=== PATIENT | male | born 1950 | race Caucasian/White ===

== ENCOUNTER 2019-02-15 10:56 | Inpatient (IN) | payer OTHER ==
[~2019-02-15] VITALS: Ht 177.8 cm; Wt 133.5 kg
--- NOTE | 2019-02-15 14:35 | NUR ---
PT ORIENTED TO ROOM AND UNIT. BED LOW AND LOCKED, SIDE RAILS UPX3 CALL LIGHT IN REACH. TELE HAS BEEN APPLIED. WILL CONTINUE TO ASSESS.
[2019-02-15 16:04] LABS: HEMATOCRIT 44.6 % (42.0-52.0); HEMOGLOBIN 13.9 gm/dL (14.0-18.0); MCH 29.3 pg (26.0-34.0); MCHC 31.2 g/dL (28.0-37.0); MCV 93.8 fL (80.0-100.0); RBC 4.76 mil/uL (4.50-6.00); RDW 16.1 % (10.5-14.5)
[2019-02-15] MEDS ORDERED: DILTIAZEM ER180 M2 PO ×2 (16:14)
[2019-02-15] MEDS ORDERED: PROAIR HFA8.5 GM INH ×2 (16:15)
[2019-02-15] MEDS ORDERED: LIPITOR40 MG PO ×2 (16:15)
[2019-02-15 16:17] LABS: INR 1.1; PROTIME 11.4 Seconds (9.3-11.4)
[2019-02-15 20:17] VITALS: BP 148/53
[2019-02-16] VITALS (38 sets, daily range): BP systolic 95–158; BP diastolic 44–83
--- NOTE | 2019-02-16 06:10 | NUR ---
REPORT RECEIVED FROM GREGDAY SHIFT RN.PATIENT A/O X 4.DENIES PAIN AND SOB.ON ROOM AIR. UP WITH STANDBY ASSIST.NPO SINCE MIDNIGHT.CHLORHEXIDINE BATH GIVEN TWICE THIS SHIFT.HEPARIN GTT STOPPED AFTER REPORT GIVEN TO CARLOS ENRIQUE AT 0600 AM.SON IS HERE WITH PATIENT.PREOP RN IS HERE AT 0615 TO ENTRY LEVEL PATIENT.POC CONTINUED.
--- NOTE | 2019-02-16 09:13 | NUR ---
RD consult received. Pt NPO for CABG 02/16. Hx HTN, CHF. Extreme obesity with BMI of 41.2. Will address any nutrition education needs after pt transfers out of ICU setting and at more appropriate time.
[2019-02-16 13:51] LABS: HEMATOCRIT 27.7 % (42.0-52.0); MCH 29.3 pg (26.0-34.0); MCHC 31.4 g/dL (28.0-37.0); MCV 93.2 fL (80.0-100.0); RBC 2.98 mil/uL (4.50-6.00); WBC 22.8 thou/uL (4.0-11.0)
[2019-02-16 13:53] LABS: HEMOGLOBIN 8.7 gm/dL (14.0-18.0)
[2019-02-16 14:07] LABS: PROTIME 17.4 Seconds (9.3-11.4)
[2019-02-16 14:12] LABS: INR 1.7
[2019-02-16 14:13] LABS: APTT 27.9 Seconds (24.5-32.8); FIBRINOGEN 113.5 mg/dL (210-360)
[2019-02-16 14:53] LABS: POC BE 6 mmol/L (-2.0 to +3.0); POC CA IONIZED 4.6 mg/dL (4.5-5.3); POC GLUCOSE 144 mg/dL (70-99); POC HEMOGLOBIN 13.3 g/dL (14.0-18.0); POC SODIUM 139 mmol/L (136-145); POC pCO2 49.5 mmHg (35.0-45.0); POC pH 7.406 (7.360-7.450)
[2019-02-16 14:53] LABS: POC BE 5 mmol/L (-2.0 to +3.0); POC CA IONIZED 4.2 mg/dL (4.5-5.3); POC GLUCOSE 161 mg/dL (70-99); POC HCO3 29.6 mmol/L (22.0-26.0); POC HEMOGLOBIN 8.5 g/dL (14.0-18.0); POC POTASSIUM 5.2 mmol/L (3.5-5.1); POC SODIUM 139 mmol/L (136-145); POC pCO2 46.7 mmHg (35.0-45.0)
[2019-02-16 14:53] LABS: POC BE 3 mmol/L (-2.0 to +3.0); POC CA IONIZED 4.9 mg/dL (4.5-5.3); POC GLUCOSE 153 mg/dL (70-99); POC HCO3 28.3 mmol/L (22.0-26.0); POC HEMOGLOBIN 9.5 g/dL (14.0-18.0); POC POTASSIUM 4.8 mmol/L (3.5-5.1); POC SODIUM 141 mmol/L (136-145); POC pCO2 48.7 mmHg (35.0-45.0); POC pH 7.372 (7.360-7.450)
[2019-02-16 14:53] LABS: POC BE 4 mmol/L (-2.0 to +3.0); POC CA IONIZED 4.7 mg/dL (4.5-5.3); POC GLUCOSE 132 mg/dL (70-99); POC HCO3 28.1 mmol/L (22.0-26.0); POC HEMOGLOBIN 11.6 g/dL (14.0-18.0); POC POTASSIUM 4.7 mmol/L (3.5-5.1); POC SODIUM 141 mmol/L (136-145); POC pH 7.413 (7.360-7.450)
[2019-02-16 14:53] LABS: POC BE 7 mmol/L (-2.0 to +3.0); POC CA IONIZED 4.6 mg/dL (4.5-5.3); POC GLUCOSE 151 mg/dL (70-99); POC HEMOGLOBIN 13.9 g/dL (14.0-18.0); POC POTASSIUM 5.4 mmol/L (3.5-5.1); POC SODIUM 138 mmol/L (136-145); POC pCO2 53.4 mmHg (35.0-45.0); POC pH 7.387 (7.360-7.450)
[2019-02-16 14:53] LABS: POC BE 6 mmol/L (-2.0 to +3.0); POC CA IONIZED 4.1 mg/dL (4.5-5.3); POC GLUCOSE 157 mg/dL (70-99); POC HCO3 29.7 mmol/L (22.0-26.0); POC HEMOGLOBIN 9.5 g/dL (14.0-18.0); POC POTASSIUM 5.1 mmol/L (3.5-5.1); POC SODIUM 141 mmol/L (136-145); POC pCO2 42.5 mmHg (35.0-45.0); POC pH 7.452 (7.360-7.450)
[2019-02-16 14:53] LABS: POC BE 6 mmol/L (-2.0 to +3.0); POC CA IONIZED 4.5 mg/dL (4.5-5.3); POC GLUCOSE 146 mg/dL (70-99); POC HCO3 30.3 mmol/L (22.0-26.0); POC HEMOGLOBIN 13.3 g/dL (14.0-18.0); POC POTASSIUM 4.9 mmol/L (3.5-5.1); POC SODIUM 139 mmol/L (136-145); POC pCO2 47.7 mmHg (35.0-45.0); POC pH 7.411 (7.360-7.450)
[2019-02-16 14:53] LABS: POC BE 5 mmol/L (-2.0 to +3.0); POC CA IONIZED 4.4 mg/dL (4.5-5.3); POC GLUCOSE 135 mg/dL (70-99); POC HEMOGLOBIN 11.2 g/dL (14.0-18.0); POC POTASSIUM 5.4 mmol/L (3.5-5.1); POC SODIUM 140 mmol/L (136-145); POC pCO2 48.8 mmHg (35.0-45.0); POC pH 7.396 (7.360-7.450)
--- NOTE | 2019-02-16 15:38 | NUR ---
INITIAL ASSESSMENT: Received consult for discharge planning. SW reviewed chart and spoke with nursing and attending physician. Pt was transferred to [facility] from [facility] yesterday due to CAD. Pt had CABG x 4 earlier today. Pt currently in ICU. Pt was just brought up from OR and getting settled into room. No contact info listed for pt. Per chart, pt lives at home in [facility]. Pt with hx of HTN/CHF/PAD/Obesity/A-fib. Therapy ordered to evaluate pt when able to participate. FELIPA is following to assist as needed with discharge planning.
[2019-02-16 15:44] LABS: HEMATOCRIT 39.3 % (42.0-52.0); MCH 29.3 pg (26.0-34.0); MCHC 31.5 g/dL (28.0-37.0); MCV 93.1 fL (80.0-100.0); RBC 4.22 mil/uL (4.50-6.00); RDW 15.6 % (10.5-14.5); WBC 37.7 thou/uL (4.0-11.0)
[2019-02-16 15:46] LABS: BE(vivo) 0.3 mmol/L (-2 to +3); PCO2 52.6 mmHg (35.0-45.0); PO2 192.4 mmHg (80.0-100.0); sO2 99.2 % (92.0-98.0)
[2019-02-16 15:47] LABS: pH 7.329 (7.360-7.450)
[2019-02-16 15:51] LABS: HEMOGLOBIN 12.4 gm/dL (14.0-18.0)
[2019-02-16 15:58] LABS: APTT 28.5 Seconds (24.5-32.8); INR 1.3; PROTIME 12.9 Seconds (9.3-11.4)
[2019-02-16 16:00] LABS: CALCIUM 8.5 mg/dL (8.5-10.1); CREATININE 1.5 mg/dL (0.7-1.3); MAGNESIUM 2.6 mg/dL (1.8-2.4)
[2019-02-16 17:45] LABS: BE(vivo) -1.4 mmol/L (-2 to +3); HCO3 24.3 mmol/L (22.0-26.0); PCO2 44.9 mmHg (35.0-45.0); PO2 113.9 mmHg (80.0-100.0); pH 7.352 (7.360-7.450)
[2019-02-16 18:30] LABS: BE(vivo) -1.5 mmol/L (-2 to +3); PCO2 49.3 mmHg (35.0-45.0); PO2 127.8 mmHg (80.0-100.0); sO2 98.3 % (92.0-98.0)
[2019-02-16 18:32] LABS: pH 7.323 (7.360-7.450)
--- NOTE | 2019-02-16 19:56 | NUR ---
PT ARRIVED TO UNIT POST CABGX4 AT 1530. DR. CALDERÓN (ANESTHISA) IN ROOM WITH CROP ADJUSTER. KAITLYNN WEBER AT BEDSIDE. PATIENT PLACED ON MONITOR. RESPIRATORY PRESENT TO PLACE ON VENT. FREDI HUGGER APPLIED. PATIENT ARRIVED ON PROPOFOL AT 10 - NO OTHER DRIPS INFUSING. VENT CHANGES MADE BY RT AT 1600. COMMUNICATED CHANGES AND ABG RESULTS TO ZECHARIAH WEBER. 2 MEDS / 1 PLUERAL CHEST TUBE. SEE I/O FOR OUTPUTS. IGLESIAS PATENT, ADEQUATE URINE OUTPUT. HR IN THE 120'S. PROVIDER AWARE. STARTED ON AMIO GTT. ORDERS TO START A SHANON GTT. PROPOFOL TIRATED OFF. PATIENT AWAKE AND FOLLOWING COMMANDS. RT AT BEDSIDE TO START CPAP TRAIL. POST TRIAL ABG RESULTS SHOWN TO DR. SPIVEY AT BEDSIDE. OKAY FOR RT TO EXTUBATE. EXTUBATED AT 1840. PATIENT TOLERATED WELL. MIDSTERNAL INCISION VAC IN PLACE. LEFT LEG GRAFT SITES, SHER DRAIN WITH 40 CC OUT. REPORT GIVEN TO DANY.
[2019-02-17] VITALS (51 sets, daily range): BP systolic 84–165; BP diastolic 38–71
[2019-02-17 05:35] LABS: HEMATOCRIT 31.2 % (42.0-52.0); MCH 29.6 pg (26.0-34.0); MCHC 31.4 g/dL (28.0-37.0); RBC 3.32 mil/uL (4.50-6.00); RDW 16.1 % (10.5-14.5)
[2019-02-17 05:47] LABS: HEMOGLOBIN 9.8 gm/dL (14.0-18.0)
[2019-02-17 05:48] LABS: WBC 22.5 thou/uL (4.0-11.0)
[2019-02-17 05:55] LABS: CALCIUM 7.7 mg/dL (8.5-10.1); CREATININE 2.1 mg/dL (0.7-1.3); MAGNESIUM 2.7 mg/dL (1.8-2.4); POTASSIUM 5.6 mmol/L (3.5-5.1)
--- NOTE | 2019-02-17 07:48 | NUR ---
ASSUMED CARE OF PT AT 1900. PT PREVIOUSLY EXTUBATED AT 1840. DR SPIVEY CALLED AT 2123 AND NOTIFIED OF ELEVATED K OF 5.5. ALSO NOTIFIED OF BP 100-90 SYSTOLIC AND UNABLE TO START CARDIZEM FOR ELEVATED HR. DR SPIVEY OK WITH ELEVATED HR, BUT ENCOURAGED TO TRY AND START CARDIZEM WHEN ABLE. CARDIZEM STATED BRIEFLY AT 2129 AND STOPPED SHORTLY AFTER DUE TO HYPOTENSION SYSTOLIC BP 80s. THIS AM PT WAS TRANSFERED TO CHAIR BY ICU STAFF. PT VERBALIZED SOME SOA BUT STATED HE FELT OK TO TRANSFER. AFTER PT TRANSFERED BP NOTED TO BE IN THE 80s SYSTOLIC AND CI 1.6. ALBUMIN GIVEN X2. REPORT GIVEN TO ONCOMING RN. PT MAKING PROGRESS TOWARDS GOALS.
--- NOTE | 2019-02-17 10:55 | EKG ---
[place] [address] [facility] [place] [address] ELECTROCARDIOGRAM REPORT Name: ANDRECLARENCE Tabby Room #: 247-P ADM IN M.R.#: [id number] Admission: 02/15/19 Attend Phys: Jatin Hodge MD Discharge: Date of : 48 Report #: [id number] THIS REPORT FOR: //name// [facility] Test Date: 2019-02-16 Test Time: 16:39:21 Pat Name: CLARENCE POWELL Department: Room: 247 P Gender: M Wedding Decorator: Tenisha ESPINAL : 1950 Requested By: Warner Mack Order Number: [id number] MD: Mick Mcintyre Measurements Intervals [place] Rate: 121 P: 109 IL: 98 QRS: -120 QRSD: 157 T: 52 QT: 361 QTc: 513 Interpretive Statements Possible atrial flutter Frequent PVCs Right bundle branch block Baseline wander in lead(s) V4 No previous ECG available for comparison Electronically Signed On 02-17-2019 10:54:30 IMAGING TECH by Mick Mcintyre [email or web address] <ELECTRONICALLY SIGNED> By: Mick Mcintyre MD 02/17/19 1054 [id number] Mick Mcintyre MD /MEGA
--- NOTE | 2019-02-17 19:09 | NUR ---
0700 ASSUMED CARE UP TO CHAIR 8 HOURS TOLERATED WELL. SG DC'D, ENCOURAGED I.S, ROM, BP LABIILE DISCUSSED WITH PA. STARTED CARDENE SEE CHARTING. TOLERATING PO DIET. PROGRESSING TOWARDS GOALS PER POC. REPORTED TO PM RN 1900.
[2019-02-18] VITALS (29 sets, daily range): BP systolic 89–157; BP diastolic 33–64
[2019-02-18 05:22] LABS: HEMATOCRIT 25.5 % (42.0-52.0); HEMOGLOBIN 8.2 gm/dL (14.0-18.0); MCH 30.1 pg (26.0-34.0); MCHC 32.2 g/dL (28.0-37.0); MCV 93.7 fL (80.0-100.0); RBC 2.73 mil/uL (4.50-6.00); RDW 15.7 % (10.5-14.5); WBC 21.6 thou/uL (4.0-11.0)
[2019-02-18 05:31] LABS: CALCIUM 7.7 mg/dL (8.5-10.1); CREATININE 1.5 mg/dL (0.7-1.3); POTASSIUM 4.7 mmol/L (3.5-5.1)
--- NOTE | 2019-02-18 15:30 | NUR ---
Assumed care at 0700. PT is sitting upright in the recliner with his eyes closed. PT appears drowsy. R. radial arterial line was dc'd per provider's orders. PT tolerated procedure well. Pressure was held for 5 minutes and hemostasis was obtained. Rojo catheter was dc'd. PT tolerated procedure well. PT is due to void. PT is currently sitting in the recliner. He refused to go back to bed. PT appears to be resting. Call light is within reach. Fall precautions in place. Nurse will continue to monitor.
[2019-02-19] VITALS (25 sets, daily range): BP systolic 107–140; BP diastolic 34–98
[2019-02-19 08:09] LABS: CALCIUM 8.5 mg/dL (8.5-10.1); CREATININE 1.2 mg/dL (0.7-1.3); POTASSIUM 5.1 mmol/L (3.5-5.1)
[2019-02-19 09:44] LABS: HEMOGLOBIN 8.3 gm/dL (14.0-18.0); MCH 29.9 pg (26.0-34.0); MCV 93.5 fL (80.0-100.0); RBC 2.78 mil/uL (4.50-6.00); RDW 15.8 % (10.5-14.5); WBC 27.1 thou/uL (4.0-11.0)
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
--- NOTE | 2019-02-19 16:51 | NUR ---
Assumed care at 0700. PT was sitting up in the recliner, drowsy, A&Ox4. PT has ambulated twice today with nurse and PT. PT declines to ambulate more often and refuses to get out of the recliner into the bed. Nurse has stood PT up multiple times to help adjust his position. PT frequently tells nurse that he "just needs to rest." Nurse encouraged activity and discussed the importance of ambulation and breathing exercises. PT verbalized understanding. At 1600 PT told nursing staff that he does not want any visitors today including his son, Pedro Guy. Nurse verbalized understanding and placed a sign on the PT's room that says "See nurse before entering." PT is currently in the recliner with his eyes closed. Call light is within reach. Fall precautions in place. Nurse will continue to monitor.
[2019-02-20] VITALS (21 sets, daily range): BP systolic 85–129; BP diastolic 39–66
[2019-02-20 04:08] LABS: HEMATOCRIT 28.3 % (42.0-52.0); HEMOGLOBIN 8.6 gm/dL (14.0-18.0); MCH 28.9 pg (26.0-34.0); MCHC 30.5 g/dL (28.0-37.0); MCV 94.8 fL (80.0-100.0); RBC 2.98 mil/uL (4.50-6.00); RDW 16.4 % (10.5-14.5); WBC 34.1 thou/uL (4.0-11.0)
[2019-02-20 04:09] LABS: CALCIUM 8.6 mg/dL (8.5-10.1); CREATININE 1.3 mg/dL (0.7-1.3); POTASSIUM 5.8 mmol/L (3.5-5.1)
--- NOTE | 2019-02-20 12:03 | EKG ---
[place] [address] [facility] [place] [address] ELECTROCARDIOGRAM REPORT Name: CLARENCE POWELL Tabby Room #: 247-P ADM IN M.R.#: [id number] Admission: 02/15/19 Attend Phys: Jatin Hodge MD Discharge: Date of : 48 Report #: [id number] THIS REPORT FOR: //name// [facility] Test Date: 2019-02-20 Test Time: 08:05:37 Pat Name: CLARENCE POWELL Department: Room: 247 P Gender: M Vehicle Cost Engineer: Raquel GREGORY : 1950 Requested By: Warner Mack Order Number: [id number] MD: Robert Francisco Measurements Intervals [place] Rate: 93 P: TN: QRS: -65 QRSD: 149 T: 38 QT: 406 QTc: 506 Interpretive Statements Atrial fibrillation Right bundle branch block Compared to ECG 02/16/2019 16:39:21 Ventricular premature complex(es) no longer present Electronically Signed On 02-20-2019 12:02:59 ONLINE EDITOR by Robert Francisco [email or web address] <ELECTRONICALLY SIGNED> By: Robert Francisco MD, [facility] 02/20/19 1202 4 4 Robert Francisco MD, [facility] /EPI
--- NOTE | 2019-02-20 18:32 | NUR ---
ASSUMED CARE OF PT AT APPROX 0700. PT IS ALERT AND ORIENTED X4. PT IS MAINTAINING 02 SAT >90 WHILE TITRATING 02 DOWN BY RT. BREATHING REMAINS EVEN AND NON LABORED AT REST. PT DOES BECOME SOA WITH ACTIVITY BUT 02 SAT REMAINS STABLE. PT TRY TO REFUSE THERAPY AND WALKING IN AFTERNOON BUT PT EDUCATED ON IMPORTANCE AND STRESSED THAT THIS THERAPY AND ACTIVITY IS VERY IMPORTANT IN HIS RECOVERY AND THEN PT AGREED TO PARTICIPATE. DRFAINS IN PLACE. PACER WIRES IN PLACE. DRESSINGS INTACT. SHER DRAIN DRESSING CHANGED TODAY. VSS. ASSESSMENT CHARTED. POSSIBLE TRANSFER OFF UNIT IN 1-2 DAYS. STILL CLOSELY MONITORING DRAINAGE OUTPUT. PATIENT UPDATED ON POC. WILL CONTINUE TO MONITOR.
[2019-02-21] VITALS (15 sets, daily range): BP systolic 98–166; BP diastolic 48–70
--- NOTE | 2019-02-21 06:00 | NUR ---
PT AWAKE AND ALERT HAS REMAINED UP IN CHAIR ALL NIGHT. SINGING TO HARD ROCK MUSIC AND DOING PUZZLES., WOUND VAC TO CHEST 0 OUTPUT ALL DRESSINGS DRY AND INTACT VOIDED 900 CC THIS SHIFT. TOTAL OF 400 CC FROM MEDS AND PLEURAL TUBE AND 370 CC FROM LEFT LEG SHER DRAIN. REMAINS IN AFIB RATE 92. CONT TO DOPPLE PEDAL PULSES. IN GOOD SPIRITS. WILL CONT TO MONITOR.
--- NOTE | 2019-02-21 15:00 | NUR ---
MS chest tubes pulled and dressed. pt tolorated well.
--- NOTE | 2019-02-21 19:37 | NUR ---
MS TUBES OUT TODAY. MEDICATED X 1 FOR PAIN WITH GOOD RESULTS. PT SITTING UP IN CHAIR AFTER AMBULATION. PT CCU OVERFLOW AND PROGRESSING TOWARDS GOALS.
[2019-02-22] VITALS (19 sets, daily range): BP systolic 100–141; BP diastolic 39–120
--- NOTE | 2019-02-22 06:00 | NUR ---
PT REMAINS AWAKE AND ALERT. WOUND VAC TO CHEST WOUND 0 DRAINAGE 600 CC FROM LEFT LEG SHER DRAIN AND 150 CC FROM PLEURAL TUBE. REMAINS IN AFIB. LUNGS COARSE IN UPPER LOBES. PT IS IN GOOD SPIRITS LISTENING TO ROCK MUSIC AND PLAYING THE AIR GUITAR. REMAINS A CCU OVERFLOW. WILKL CONT TO MONITOR.
[2019-02-22 08:34] LABS: HEMATOCRIT 26.6 % (42.0-52.0); HEMOGLOBIN 8.4 gm/dL (14.0-18.0); MCH 29.9 pg (26.0-34.0); MCHC 31.5 g/dL (28.0-37.0); MCV 94.9 fL (80.0-100.0); RBC 2.8 mil/uL (4.50-6.00); RDW 17.1 % (10.5-14.5); WBC 24.6 thou/uL (4.0-11.0)
[2019-02-22 08:50] LABS: CALCIUM 9.3 mg/dL (8.5-10.1); CREATININE 1.2 mg/dL (0.7-1.3); POTASSIUM 5.1 mmol/L (3.5-5.1)
--- NOTE | 2019-02-22 19:59 | NUR ---
PT AMBULATING IN HALLWAY X2. ORDER TO TRANSFER TO CCU. AWAITING AVAILABLE ROOM. GIVEN HYDROCODONE FOR PAIN X1. UP TO CHAIR ALL DAY TODAY. PACER WIRES DISCONTINUE BY GUS BETANCOURT THIS AM. CHEST XRAY DONE FOLLOWING. REPORT GIVEN TO URGENT CARE TECHNICIAN RN.
[2019-02-23] VITALS (8 sets, daily range): BP systolic 118–173; BP diastolic 30–60
--- NOTE | 2019-02-23 06:00 | NUR ---
PT UP IN CHAIR AWAKE MOST OF NOCT. DRESSING INTACT. HAD 650 CC DRAINAGE FROM LEFT LEG SHER DRAIN. PLEURAL CHEST TUBE WITH 100 CC DRAINAGE THIS SHIFT. ONE LARGE LIQ STOOL VOIDED 1500 CC. PAIM MED X 1 IN GOOD SPIRITS. REMAINS A CCU OVERFLOW.
--- NOTE | 2019-02-23 10:10 | NUR ---
Followup: S/P CABG and is CCU overflow in ICU. Appetite initially decreased but now eating 100% of meals. Pt with extreme class obesity, BMi 43. Was started on Ensure Enlive with every meal while appetite decreased. Will discontinue this now as it provides 350 kem per serving and pt is drinking 3 of these plus eating 100%. RD education provided-see RD education documentation. Low nutrition risk
--- NOTE | 2019-02-23 12:00 | NUR ---
PT TRANSFERED TO CCU VIA CHAIR ON MONITOR. ALL BELONGINGS WITH PT.
--- NOTE | 2019-02-23 12:31 | NUR ---
TO UNIT BY CHAIR FROM ICU, REPORT FROM ADRIAN MENDENHALL. AFIB PER TELE. IN BEDSIDE CHAIR WITH LEGS ELEVATED. WILL MONITOR CLOSELY.
[2019-02-24 00:30] VITALS: BP 104/46
[2019-02-24 04:45] VITALS: BP 118/78
--- NOTE | 2019-02-24 04:49 | NUR ---
PT S/P CARDIAC CATH. ALERT AND ORIENTED. VSS. R GROIN SITE INTACT WITH DRY BLOOD ON THE DRESSING. PT DENIES PAIN, N/V/. NO CHEST PAIN OVERNIGHT. PERIODIC PVCs. ASYMPTOMATIC. WILL CONTINUE WITH PLAN OF CARE.
--- NOTE | 2019-02-24 08:28 | NUR ---
PT ALERT AND ORIENTED S/P CABG. POD 8. STERNAL DRESSING C/D/I. SHER DRAIN 320 CC OUT PUT. VSS. NO CHEST PAIN. WILL CONTINUE TO MONITOR.
[2019-02-24 08:30] VITALS: BP 100/50
--- NOTE | 2019-02-24 10:43 | O ---
[facility] [place] [address] OPERATIVE REPORT Name: ANDRECLARENCE Tabby Room #: 206-P ADM IN M.R.#: [id number] Admission: 02/15/19 Attend Phys: Jatin Hodge MD Discharge: Date of : 48 Report #: [id number] THIS REPORT FOR: //name// CC: FAM unknown Jatin Hodge DATE OF SERVICE: 02/16/2019 PREOPERATIVE DIAGNOSIS: Coronary artery disease. POSTOPERATIVE DIAGNOSIS: Coronary artery disease. OPERATION: Coronary artery bypass x 4 including left internal mammary artery to left anterior descending artery, saphenous vein to diagonal and marginal arteries and saphenous vein to posterior descending artery in a Y-type fashion. Endoscopic harvest, left greater saphenous vein. SURGEON: Jatin Hodge MD ENVIRONMENTAL SAMPLER: GUS Leger. ANESTHESIA: General. INDICATIONS: The patient is a 68-year-old transferred from [place] for coronary artery bypass. The patient has a 70-80% left main coronary stenosis and had non-STEMI infarct in association with supraventricular tachycardia. FINDINGS AND TECHNIQUE: After general anesthesia was established, saphenous vein was harvested using an endoscopic approach. In any event, after general anesthesia was established, saphenous vein was harvested using an endoscopic approach. Exposure was obtained through median sternotomy. Left internal mammary artery was harvested from chest wall. Pericardial well was made. Cannulation sutures were placed. Heparin was given. Aorta was cannulated. Right atrium was cannulated. Cardioplegia needle was positioned in the aortic root. Retrograde cardioplegic catheter was placed in coronary sinus. Cardiopulmonary bypass was established. Aorta was crossclamped. Antegrade and retrograde cardioplegia were given. Ice was poured in the pericardial well. The heart was stopped. During electromechanical arrest, the distal anastomoses were performed and end-to-side anastomosis was made to the posterior descending artery. This was a 1.5 mm vessel. Cold cardioplegia was given. Separate segment of vein was sewn in end-to-side fashion to the large first marginal artery. This was a 1.7 mm vessel, cold and intramyocardial. Cold cardioplegia was given. Same segment of vein was sewn in end-to-side fashion on the first diagonal. This was a 1.5 mm vessel. Cold cardioplegia was given. Left internal mammary artery was sewn in [facility] [address] [place] [address] OPERATIVE REPORT Name: CLARENCE POWELL Room #: 206-P [facility] IN .R.#: [id number] Admission: 02/15/19 Attend Phys: Jatin Hodge MD Discharge: Date of : 48 Report #: [id number] end-to-side fashion to the left anterior descending artery, a relatively distal position beyond obvious plaque. This was a 1.5 mm vessel. The anastomosis was checked with the temperature technique. Cold cardioplegia was given. One proximal anastomosis was performed as the aorta was very atherosclerotic and I could find one decent spot. This was the proximal end of the vein going to the diagonal and marginal. When this was complete, warm retrograde cardioplegia was given followed by warm continuous blood to the coronary sinus. When this infusion was complete, the crossclamp was removed, de-airing maneuvers were performed. The proximal end of the vein to the PDA was then sewn to the side of the other bypass graft. Flow was established in all the bypasses. Chest tubes, pacing wires, and marker were placed. When the patient was warm, he was weaned from cardiopulmonary bypass. Venous cannula was removed. Protamine was given, the aortic cannula was removed. Flows were measured in the bypass grafts. When hemostasis was satisfactory, chest was irrigated with antibiotic solution and closed in the usual fashion. The patient was taken to the Intensive Care Unit in good condition having tolerated the procedure well. <ELECTRONICALLY SIGNED> By: Jatin Hodge MD 02/24/19 1043 [id number] Jatin Hodge MD /nt
[2019-02-24 12:05] VITALS: BP 107/48
--- NOTE | 2019-02-24 15:06 | NUR ---
Patient transferred to CCU from ICU. Noted no Emergency contact listed since admission. Sp with patient who works in [employer] service for 40 years. 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 he has prev 4 strokes, toe amputation and numerous hospital stays at [facility]. Patient reports 2000 hours of sick time that he has used. he has some financial concerns. He and girlfriend of 3 years Ara Chilel [phone] have been staying with a friend. he reports at [place] he may stay with son Pedro Guy [address] [place] [address] . Patient has dtr Trixie Greene who he is not in much contact. Patient has worked with therapy who recommeds possible rehab need. Patient agrees with need for rehab and interest in [facility].
--- NOTE | 2019-02-24 16:27 | NUR ---
PT CARE ASSUMED APPROX 0700. ASSESSMENTS CHARTED. DENIES SOA. REPORTS STERNAL INCISION CHEST PAIN. ALSO REPORTS ADEQUATE PAIN MANAGEMENT. VSS. UP WITH SBA. PT SEEMS WEAK BUT IS MAKING PROGRESS PER PT/OT REPORT. FAMILY AT BEDSIDE MOST OF SHIFT. CT OUT THIS SHIFT. POST TUBE XRAY SHOWS NO PNEUMO. PT TOLERATING WELL. SHER DRAIN C/D/I. PATENT. GUS ROUSSEAU AWARE OF EXCESSIVE DRAINAGE OUTPUT. PT TO RECLINER MOST OF SHIFT. NO DISTRESS NOTED.
--- NOTE | 2019-02-24 16:32 | NUR ---
PT STERNAL WOUND VAC C/D/I
[2019-02-24 17:28] VITALS: BP 119/51
[2019-02-24 20:15] VITALS: BP 120/62
--- NOTE | 2019-02-25 04:41 | NUR ---
PT ALERT AND ORIENTED. REPORTS SOB WITH ACTIVITIES. ENCOURAGED TO CONTINUE USING IS. VSS.STERNAL PAIN ALLEVIATE WITH PAIN MEDS.PT SLEPT IN RECLINER. O2 SATS MANITAINED > 90 ON RA. PT TO CONTINUE WORKING WITH THERAPY HE PROGRESSES TOWARDS RECOVERY. NO FURTHER CONCERNS. WILL CONTINUE WITH CURRENT PLAN OF CARE.
[2019-02-25 04:45] VITALS: BP 104/46
[2019-02-25 07:40] VITALS: BP 120/54
[2019-02-25 11:45] VITALS: BP 106/43
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
[2019-02-25 15:25] VITALS: BP 101/45
--- NOTE | 2019-02-25 16:13 | NUR ---
ASSUMED CARE PT SHIFT CHANGE. ASSESSMENTS CHARTED. MEDS GIVEN PER APR. PT ALERT AND ORIENTED.VSS. C/O PAIN IN LOWER EXTREMITIES-MANAGED WITH PO PAIN MEDS. O2 SATS WNL ON 2L O2. PT UP WITH CARDIAC REHAB AND PHYS THERAPY SEVERAL TIMES THIS SHIFT TOLERATING WELL. SHER DRAIN DRAINING LARGE AMOUNTS- CTS NURSE NOTIFIED. CTS NURSE SAID SHE "WILL LET DR SPIVEY AND ONELIA KNOW." STERNAL INCISION DRESSING INTACT AND CONNECTED TO WOUND VAC. HARVEST SITE DRESSINGS DRY AND INTACT. PT DENIES NEEDS AT THIS TIME. PT CARE PASSED ONTO NURSE STOKES.
--- NOTE | 2019-02-25 19:21 | NUR ---
ASSUMED CARE FROM [place]. SHER DRAIN PULLED OUT BY ONELIA WEBER. PT DENIED HAVING PAIN OR DISCOMFORT. UP IN THE CHAIR WILL CONTINUE TO MONITOR.
[2019-02-25 19:45] VITALS: BP 121/43
[2019-02-26 04:45] VITALS: BP 103/49
--- NOTE | 2019-02-26 06:53 | NUR ---
ASSUMED PT CARE AT 1900, PT A&OX4, NESTOR AT BEDSIDE, ASSESSMENTS CHARTED, VS STABLE, COMPLAINED OF PAIN, MEDICATED PRN WITH NO FURTHER COMPLAINS, WOUND VAC IN PLACE, STERNAL DRESSING INTACT, RESTED WELLTHROUGH THE NIGHT, WILL CONTINUE TO MONITOR
[2019-02-26 07:15] VITALS: BP 123/44
[2019-02-26 08:27] LABS: CALCIUM 8.3 mg/dL (8.5-10.1); CREATININE 1.3 mg/dL (0.7-1.3); POTASSIUM 4.5 mmol/L (3.5-5.1)
[2019-02-26 11:30] VITALS: BP 97/45
[2019-02-26] MEDS ORDERED: ELIQUIS5 MG PO ×2 (12:34)
[2019-02-26] MEDS ORDERED: FERREX 150 PLU1 EAC1 PO ×2 (12:34)
[2019-02-26] MEDS ORDERED: LOPRESSOR25 PO ×2 (12:35)
[2019-02-26] MEDS ORDERED: PACERONE 200 M200 M1 PO ×2 (12:35)
[2019-02-26] MEDS ORDERED: ADULT LOW DOSE81 MG PO ×2 (12:35)
[2019-02-26] MEDS ORDERED: DILTIAZEM 24HR180 M1 PO ×2 (12:35)
[2019-02-26] MEDS ORDERED: HYDROCODON-ACE1 EAC7 PO ×2 (12:36)
--- NOTE | 2019-02-26 13:00 | NUR ---
INSURANCE AUTH OBTAINED PER THE [facility]. THEY CAN ACCEPT TODAY. PT MEDICALLY CLEARED FOR DC TO REHAB TODAY. CARE TEAM AND PT UPDATED. PT TO GO TO RM 501. [facility] CM TO FOLLOW FOR DC PLANNING.
--- NOTE | 2019-02-26 13:54 | NUR ---
ASSESSMENT CHARTED. PT ALERT AND ORIENTED. VSS. DENIED HAVING PAIN OR DISCOMFORT. STERNUM PRECAUTION MAINTAINERD. WOUNDVAC INTACT. UP IN THE CHAIR THIS SHIFT. EVALUATED BY PT AND OT. ORDERS GIVEN TO TRANSFER PT TO REHAB [address] [place] [address]. PT NOTIFIED. REPORT CALLED IN TO NERISSA CAMPBELL.
== END 2019-02-26 13:59 | DRG 235 ==
LOC: TBA 10:56 → 2N 13:57 → ICU 13:57 → 2N 02-23 11:54 → ENTRNSPT 02-26 13:34 → EDTRNSPTSTS 02-26 13:36 → 2N 02-26 13:59
PROVIDERS: Hospitalist; Physician Assistant; ADMIT Surgery Vascular Surgery
PROC: 021209W Bypass Coronary Artery, Three Arteries from Aorta with Autologous Venous Tissue, Open Approach (ICD-10-PCS; principal; 2019-02-16)
PROC: 30233M1 Transfusion of Nonautologous Plasma Cryoprecipitate into Peripheral Vein, Percutaneous Approach (ICD-10-PCS; principal; 2019-02-16)
PROC: 30233K1 Transfusion of Nonautologous Frozen Plasma into Peripheral Vein, Percutaneous Approach (ICD-10-PCS; principal; 2019-02-16)
PROC: 02H633Z Insertion of Infusion Device into Right Atrium, Percutaneous Approach (ICD-10-PCS; principal; 2019-02-16)
PROC: 06BQ4ZZ Excision of Left Saphenous Vein, Percutaneous Endoscopic Approach (ICD-10-PCS; principal; 2019-02-16)
PROC: 03HY32Z Insertion of Monitoring Device into Upper Artery, Percutaneous Approach (ICD-10-PCS; principal; 2019-02-16)
PROC: 5A1221Z Performance of Cardiac Output, Continuous (ICD-10-PCS; principal; 2019-02-16)
PROC: 02100Z9 Bypass Coronary Artery, One Artery from Left Internal Mammary, Open Approach (ICD-10-PCS; principal; 2019-02-16)
DX: I25.10 Atherosclerotic heart disease of native coronary artery without angina pectoris (principal); N17.0 Acute kidney failure with tubular necrosis; I50.32 Chronic diastolic (congestive) heart failure; Z68.41 Body mass index [BMI] 40.0-44.9, adult; I48.91 Unspecified atrial fibrillation; E78.5 Hyperlipidemia, unspecified; I73.9 Peripheral vascular disease, unspecified; E66.01 Morbid (severe) obesity due to excess calories; I25.5 Ischemic cardiomyopathy; I11.0 Hypertensive heart disease with heart failure; D72.829 Elevated white blood cell count, unspecified; J20.9 Acute bronchitis, unspecified; Z88.8 Allergy status to other drugs, medicaments and biological substances; Z79.899 Other long term (current) drug therapy; Z79.82 Long term (current) use of aspirin
CPT/HCPCS: 10078; 10081; 47000; 47001; 47002; 48888; 50010; 62110; 62950; 65020; 65047; 65090; 65131; 65135; 83006; 85076

== ENCOUNTER 2019-02-26 11:29 | Inpatient (IN) | payer OTHER ==
[~2019-02-26] VITALS: Ht 177.8 cm; Wt 134.4 kg
--- NOTE | ~2019-02-26 | PLAN ---
[facility] [place] [address] [place] [address] REHAB UNIT PLAN OF CARE Name: POWELLCLARENCE Tabby Room #: 516-1 ADM IN M.R.#: [id number] Admission: 02/26/19 Attend Phys: Clarence Collins MD Discharge: Date of : 48 Report #: [id number] THIS REPORT FOR: //name// CC: Clarence Collins [facility] unknown DATE OF SERVICE: 03/01/2019 PROGRESS NOTE AND OVERALL PLAN OF CARE SUBJECTIVE: The patient is seen back today in followup. He is in no distress. Last recorded temperature 36.5, pulse 73, respirations 20, and blood pressure 109/50. He is alert. He has the sternal wound VAC in place. Drain site areas have gauze over them. Left leg has gauze dressing with Thien wrap in place. There is no focal calf swelling. He is in good spirits. He has been working in therapies with transfers, min assist and is ambulated up to 100 feet contact guard front-wheeled walker. In occupational therapy, lower body dressing is min assist. ASSESSMENT: 1. Medical complexity with generalized debilitation. 2. Coronary artery disease, status post coronary artery bypass grafting x 4. 3. Bronchitis. 4. Cardiopulmonary rehabilitation. 5. Peripheral arterial disease. 6. Ischemic cardiomyopathy. 7. History of atrial fibrillation, rate controlled. 8. Obesity. 9. History of right rotator cuff repair. PLAN: The overall plan of care is based on the preadmission screen, post-admission physician evaluation and information garnered from therapy assessments. 1. Estimated length of stay is probably at least 5-7 days. 2. Medical prognosis is reasonably good. 3. Anticipated interventions includes the interdisciplinary acute inpatient rehabilitation program. 4. Anticipated functional outcomes would be for the patient to become modified independent with transfers, mobility and ADLs. 5. Discharge destination would be back to the home setting with his significant other. 6. Expected therapy by discipline includes PT and OT 1-1/2 hours per day each [address] [address] REHAB UNIT PLAN OF CARE Name: CLARENCE POWELL Room #: 516-1 ADM IN [facility]#: [id number] Admission: 02/26/19 Attend Phys: Clarence Collins MD Discharge: Date of : 48 Report #: [id number] five days a week throughout the duration of the acute inpatient rehabilitation stay. By: [id number] Clarence Collins MD /nt
[~2019-02-26 11:29] MED LIST: DILTIAZEM ER180 M2 PO; LIPITOR40 MG PO; PROAIR HFA8.5 GM INH
[2019-02-26] MEDS ORDERED: ELIQUIS5 MG PO ×2 (12:34)
[2019-02-26] MEDS ORDERED: FERREX 150 PLU1 EAC1 PO ×2 (12:34)
[2019-02-26] MEDS ORDERED: ADULT LOW DOSE81 MG PO ×2 (12:35)
[2019-02-26] MEDS ORDERED: PACERONE 200 M200 M1 PO ×2 (12:35)
[2019-02-26] MEDS ORDERED: DILTIAZEM 24HR180 M1 PO ×2 (12:35)
[2019-02-26] MEDS ORDERED: LOPRESSOR25 PO ×2 (12:35)
[2019-02-26] MEDS ORDERED: HYDROCODON-ACE1 EAC7 PO ×2 (12:36)
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
--- NOTE | 2019-02-26 15:39 | NUR ---
PT ARRIVED FROM CCU AT 1430, ACCOMPANIED BY HIS EDILBERTO'SAM. VITALS ARE STABLE. DENIES PAIN AT THIS TIME. LS COARSE, PT HAS A PRODUCTIVE COUGH, SATS >95% ON RA. HS REG BUT TACHY (120). CHEST INCISION REMAINS DRY AND INTACT, WOUNDVAC PATENT AND INTACT. LLE INCISION REMAINS INTACT, CALF INCISION SECURED AND MORE DRESSING ADDED TO PROVIDE PRESSURE (SITE DRAINING MILD SEROUS DRAINAGE). ABDOMEN IS DISTENDED WITH ACTIVE BS, PT REPORTED MULTIPLE LOOSE STOOLS YESTERDAY AND 1 LG TODAY (PT WAS RECEIVING STOOL SOFTERNORS AND LAXACTIVES YESTERDAY). PT REMAINS ON 2500CC FLUID RESTRICTION. UP WITH SBA AND GB. CALL LIGHT WITHIN REACH. FALL PRECAUTIONS IN PLACE. HOURLY ROUNDING
[2019-02-26 19:50] VITALS: BP 108/56
--- NOTE | 2019-02-27 04:00 | NUR ---
ASSUMED CARE AT APPROX 1900 EVENING 02/26. PT SITTING UP IN RECLINER AT CHANGE OF SHIFT RESTING. PT ALERT AND ORIENTED X4, SOMEWHAT ANXIOUS AND WORRIED ABOUT THERAPY. MUCH EMOTIONAL SUPPORT GIVEN TO PT. CHEST DRESSING IN PLACE WITH 2X2 ON LOWER LEFT SATURATED WITH SEROSANGUINOUS FLUID. CHANGED AND REINFORCED WITH FOLDED ABD PAD. PT C/O NOT BEING ABLE TO SLEEP AND GIVEN PO BENADRYL ORDERED WITH PT SLEEPING UNTIL APPROX 0200. PT HAS BEEN AWAKE SINCE THEN. PT ASSIST UP TO BSC TO HAVE LIQUID BM. PT TOOK HS MEDS WITH WATER TOLERATING WELL. CHAIR ALARM ON AND CALL LIGHT IN REACH. WILL CONTINUE TO MONITOR.
[2019-02-27 04:26] LABS: CALCIUM 8.2 mg/dL (8.5-10.1); CREATININE 1.3 mg/dL (0.7-1.3); POTASSIUM 4.3 mmol/L (3.5-5.1)
[2019-02-27 04:39] LABS: MCH 29.8 pg (26.0-34.0); MCHC 30.8 g/dL (28.0-37.0); MCV 96.7 fL (80.0-100.0); RBC 2.69 mil/uL (4.50-6.00); RDW 18.3 % (10.5-14.5); WBC 12.5 thou/uL (4.0-11.0)
[2019-02-27 07:47] VITALS: BP 116/64
--- NOTE | 2019-02-27 15:22 | NUR ---
ASSUMED CARES AT 0700. PT SLEEPY, ORIENTED*4 BUT FORGETFUL, SPEECH SLURRED. VITALS REMAIN STABLE. DENIES PAIN AT THIS TIME. PT STATED THAT HE HASN'T BEEN SLEEPING WELL MAYBE 1-2HRS PER NIGHT. STERNAL INCISION REMAINS DRY AND INTACT, WOUND VAC IS INTACT AND PATENT. DRAIN SITE ON CHEST LEFT AND LLE CONTINUE TO DRAIN LARGE AMOUNTS OF SEROUS AND SEROUSANGUINOUS DRAINAGE RESPECTIVELY, DRESSINGS CHANGED. LLE WRAPPED WITH ACEWRAP FROM FOOT TO GROIN AREA PER SURGEON'S ORDER. BLE EDEMETOUS 4+, ONETIME DOSE OF LASIX ADMINISTERED PER ORDER. PT REPORTED FEELING A POP IN HIS CHEST THIS AM WHILE TRANSFERING, CHEST XRAY DONE (SEE RESULTS). ABDOMEN REMAINS SOFT BUT DISTENDED/ OBESE, PT REPORTED *3 LOOSE STOOLS TODAY, HOSPITALIST NOTIFIED. PT UP WITH 1 MIN ASSIST, GB AND HEARTPILLOW. AMBULATED FROM BED TO DOOR WITH THERAPY AND TOLERATED WELL. STERNAL PRECAUTIONS MAINTAINED. Q1H VISUAL CHECKS. CALL LIGHT WITHIN REACH. FALL PRECAUTIONS IN PLACE
[2019-02-27 15:30] LABS: BE(vivo) 1.9 mmol/L (-2 to +3); HCO3 27.6 mmol/L (22.0-26.0); PCO2 VENOUS 48.7 mmHg (41.0-51.0); PO2 VENOUS 68.5 mmHg (35.0-45.0)
[2019-02-27 19:49] VITALS: BP 109/65
--- NOTE | 2019-02-28 02:59 | NUR ---
ASSUMED CARE AT APPROX 1900 EVENING 02/27. PT SITTING UP IN RECLINER AT CHANGE OF SHIFT. PT AWAKE AND ALERT HOWEVER FORGETFUL. PTS SPEECH DIFFICULT TO UNDERSTAND PT MUMBLES WORDS AND SPEECH SOMEWHAT SLURRED AT TIMES. PT UP TO BATHROOM TO HAVE 2 LIQUID STOOLS SO FAR, PLACED IN ISOLATION FOR PENDING CDIFF AND WILL SEND STOOL SAMPLE TO LAB WHEN AVAILABLE. WOUND VAC IN PLACE WITH NO DRAINAGE IN CANISTER HOWEVER DRESSING NEXT TO WOUND VAC DRESSING CHANGED TWICE SO FAR TONIGHT IT WAS SATURATED WITH SEROSANGUINOUS DRAINAGE. APPLIED ABD PAD AND REINFORCED WITH TAPE. RESP SET PT UP WITH CPAP AND CONTINUOUS PULSE OXIMETER HOWEVER PT PULLED OFF MASK AFTER APPROX 2HRS AND REQUESTED NOT TO WEAR ANYMORE. 02 SATS 92% AND GREATER. DCD PULSE OXIMETER MACHINE KEPT BEEPING NOT REGISTERING AND IRRITATING PT. PT NOW BACK IN RECLINER PER HIS REQUEST. GIRLFRIEND JUST ARRIVED TO ROOM STATING PT CALLED HER AT HOME ASKING HER TO COME IN TONIGHT. CHAIR ALARM ON, CALL LIGHT IN REACH. WILL CONTINUE TO MONITOR.
[2019-02-28 03:06] LABS: GLYCOHEMOGLOBIN (HGB A1C) 6.1 % (4.8-5.6)
[2019-02-28 03:57] LABS: HEMATOCRIT 28.2 % (42.0-52.0); HEMOGLOBIN 8.8 gm/dL (14.0-18.0); MCH 30.2 pg (26.0-34.0); MCHC 31.1 g/dL (28.0-37.0); RBC 2.9 mil/uL (4.50-6.00); RDW 18.4 % (10.5-14.5); WBC 12.7 thou/uL (4.0-11.0)
[2019-02-28 04:00] LABS: CALCIUM 8.5 mg/dL (8.5-10.1); CREATININE 1.4 mg/dL (0.7-1.3); MAGNESIUM 2.1 mg/dL (1.8-2.4); POTASSIUM 4.3 mmol/L (3.5-5.1)
[2019-02-28 08:20] VITALS: BP 132/64
--- NOTE | 2019-02-28 15:42 | NUR ---
ASSUMED CARE OF PT AT 0715. PT IS A&OX4. IS ON ROOM AIR. IS STALE. DENIES PAIN IN CHEST INCISION & LLE. WOUND VAC INTACT TO SURGICAL SITE. ACEWRAP INTACT. DRSG WAS CHANGED TO 2 PUNCTURE SITES LEFT CHEST THEY WERE SATURATED. CLEANSED WITH NS, GUAZE 4X4, ABD, & TAPE APPLIED AT APPOX 1200. PT IS UP WITH 1 ASSIST, GB, WALKER TO BATHROOM. FALL PRECAUTIONS & HOURLY ROUNDING MAINTAINED. LABS & VITALS REVEIWED. STOOL SAMPLE COLLECTED THIS AM. PT REMAINS ON SPECIAL CONTACT ISOLATION. PT'S LADY FRIEND STAYED THE NIGHT IN ROOM. IS STILL IN ROOM SLEEPING AT THIS TIME. CALL LIGHT WITHIN REACH. WILL CONTINUE TO MONITOR.
[2019-02-28 20:13] VITALS: BP 109/50
--- NOTE | 2019-02-28 23:33 | NUR ---
PT ASSESSMENT DONE AND VSS. MEDS GIVEN AND WELL TOLERATED. FALL PRECAUTIONS IN PLACE. ABD'S TO LEFT LEG AND CHEST CHANGED SEVERAL TIMES OVERNIGHT. LOTS OF DRAINAGE. SLEEPING WELL. GIRLFRIEND AT BEDSIDE OVERNIGHT. HOURLY ROUNDING. CALL LIGHT IN REACH. WILL CONTINUE TO MONITOR.
[2019-03-01 08:30] VITALS: BP 111/57
--- NOTE | 2019-03-01 13:46 | NUR ---
Nutrition: Received consult for "diet instructions". Pt admit to rehab unit with CAD, S/P CABG. Heart healthy diet instruction completed on acute. Pt eating well, 70-100% of meals. BMI [address] will remain available for any needs that arise on acute however currently pt is low risk.
--- NOTE | 2019-03-01 15:14 | NUR ---
WOUND CONSULT; I WAS CONSULTED TO SEE THIS PATIENT RE; THE AMOUT OF DRAINAGE WAS AFFECTING THE PATIENTS THERAPY. THE BILATERAL CHEST TUB SITES WELL THE LEFT LE SITES ALL DRAINING COPIOUS SEROSANGINOUS DRAINAGE. THE PATIENT AN WERE DESPERATE TO MANAGE THIS. RECOMMENDATIONS; PAINT ALL PERIWOUND AREAS WITH A BARRIER SWAB WITH EACH DRESSING AND APPLY AQUACEL AG,COVER WITH A BOARDER FOAM, OR ABD, PRN DISCUSSED WITH RN
--- NOTE | 2019-03-01 15:26 | NUR ---
WOUND CONSULT; I WAS CONSULTED RE; COPIOUS DRAINAGE FROM THE OLD CHEST TUBE SITES BILATERALLY AND THE LEFT LE SURGICAL SITES ALL DRAINING COPIOUS SEROSANGINOUS DRAINAGE. RECOMMENDATIONS; APPLY AQUACEL AG TO BILATERAL CHEST TUBE SITES WELL LEFT LE SITES,COVER WITH A BOARDER FOAM,PRN
--- NOTE | 2019-03-01 18:49 | HC ---
[facility] [place] [address] CONSULTATION Name: CLARENCE POWELL Tabby Room #: 516-1 ADM IN ..#: [id number] Admission: 02/26/19 Attend Phys: Clarence Collins MD Discharge: Date of : 48 Report #: [id number] THIS REPORT FOR: //name// CC: Clarence Collins [facility] unknown DATE OF SERVICE: 02/27/2019 BEHAVIORAL STATUS EXAM AGE: 68 ATTENDING PHYSICIAN: Clarence Collins MD LOSS PREVENTION/SAFETY DISTRICT MANAGER: Delvis Arango, PhD CLINICAL PRESENTATION: The patient is a 68-year-old white male, morbidly obese, who presented initially to the [facility] with chest pain. The patient was transferred to the [facility] where he underwent a CABG x 4 for severe coronary artery disease. He is reported to have had a slow recovery postoperatively that included an accidental pulling out of his chest tube. He carries an admitting assessment on the rehabilitation unit that included coronary artery disease, status post coronary artery bypass grafting x 4 on 02/16/2019, medical complexity with generalized debility, bronchitis, ischemic cardiomyopathy, peripheral artery disease, obesity, history of atrial fibrillation, history of right rotator cuff repair. The patient also reports having been diagnosed with sleep apnea and having difficulty with sleep prior to his hospitalization. A complete summary of his medical condition, history and medication can be found in his medical records. Neuropsychological consultation was requested to provide assistance in the assessment of cognitive and emotional status and to provide recommendations and services. Prior to this most recent admission, the patient reports living at his home independently. He has two children. 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 He reports having had a great deal of difficulty walking including decreased endurance prior to this bypass procedure. He reports being able to drive, but intermittently having difficulty remembering to pay his bills. The patient also indicates a complicated social history that includes being a victim of a scam in which people moved into the home, but he was unable to evict them. He then states that he got himself evicted by not paying the rent. The patient is a high school graduate. TECHNIQUES UTILIZED: Clinical interview, review of medical records, staff consultation and behavioral observation, mini mental status exam 2 standard [facility] [address] [place] [address] CONSULTATION Name: CLARENCE POWELL Tabby Room #: 516-1 [facility] IN [facility].#: [id number] Admission: 02/26/19 Attend Phys: Clarence Collins MD Discharge: Date of : 48 Report #: [id number] version, clock drawing and verbal fluency assessment (letter and category). EXAMINATION FINDINGS: The patient was alert and cooperative with the assessment. He accurately described events surrounding his admission. There is no evidence of aphasia. His thoughts are logical and goal oriented. There is no evidence of thought disorder. He does not report auditory or visual hallucinations. There is no report of suicidal ideation. However, the patient does talk at a rapid pace and he gets tangential. He reports a longstanding history of anxiety disorder. Symptoms are reported to include memory, word finding, depression, anxiety and sleep disturbance. Poor maintenance of sleep is described. The patient is obese. His performance on the MMSE 2 brief version is within normal limits with a raw score of 14 of 16. Performance on the MMSE 2 standard version is within normal limits with a raw score of 27 of 30. The patient was at 4/5 for orientation to time, 5/[address] and 2/3 for immediate recall of 3 items after a brief time delay and distraction. Initial encoding was 3/3. MMSE 2 standard version, the patient was 4/5 for serial sevens, 2/2 for naming, 1/1 for repetition, 3/3 for comprehension. He could read and follow a single command and write a sentence. The patient was able to copy a simple geometric design. Clock drawing within normal limits. Letter fluency was within normal limits with a raw score of 30, T score of 57. Category fluency was within normal limits with a raw score of 48 and a T score of 59 and total fluency was a raw score 28 and T score of 59, which is within normal limits. The patient describes having difficulty with concentration and attention and short-term memory. Anxiety and sleep apnea is reported. DIAGNOSTIC IMPRESSION: Generalized anxiety disorder. Subtle to mild neurocognitive disorder, unspecified, without behavior disorder. RECOMMENDATIONS: I reviewed a relaxation technique with him. He may benefit from the use of an antidepressant to assist with sleep and management of anxiety. A followup neuropsychological assessment approximately up to 2 months following his hospitalization would be of benefit to clarify cognitive status. Thank you very much for allowing me to provide the consultation on this patient. <ELECTRONICALLY SIGNED> By: Delvis Arango, PhD 03/01/19 1849 [id number] Delvis Arango, PhD /nt
--- NOTE | 2019-03-01 19:30 | NUR ---
ASSUMED CARE OF PT AT 0715. REPORTS DIDN'T SLEEP GOOD AT NIGHT. PT IS A&OX4. VSS ON ROOM AIR. BS ACHS. PT IS NOT DM OR ON STEROID. NOTIFIED AUDREY, OBTAINED ORDER TO D/C ACHS AND ORDER FOR TRAZADONE FOR SLEEP. PT DENIES PAIN. CHEST INCISION & LLE. WOUND VAC INTACT TO SURGICAL SITE. LEFT LEG DRESSING HAD LOT OF DRAINAGE. WOUND NURSE WAS CONSULT AND ABEL CAME AND CHANGED DRESSING ON ABD AND LEFT LEG. SEE HIS NOTE. NOTIFIED ONELIA AND HE CAME OVER REWRAPPED LEFT LEG AND CHANGED CHEST TUBE INCISIONS DRESSINGS. ALL DRESSING INTACT NOW. PT IS UP WITH 1 ASSIST, GB, WALKER TO BATHROOM. FALL PRECAUTIONS & HOURLY ROUNDING MAINTAINED. LABS & VITALS REVEIWED. PT WAS ON ISOLATION FOR CDIFF. HAD 2X LOOSE STOOLS TODAY. TEST IS NEGATIVE FOR CDIFF. S.O STAYED THE NIGHT IN ROOM. GF AT BEDSIDE TO OFFER SUPPORT. PT HAS URGENCY TO GO TO BATHROOM. UP WITH TO BATHROOM WITHOUT CALLINGS COUPLE TIME TODAY. ENCOURAGED PT TO USE CALL LIGHT AND WAIT FOR ASSISTANCE. CALL LIGHT WITHIN REACH. PT CONTINUE TO BE ON STENUM PRECAUTION. GAVE REPORT TO NIGHT NURSE TO GIVE SLEEPING AID AND CONTINUE TO MONITOR.
[2019-03-01 19:45] VITALS: BP 116/60
--- NOTE | 2019-03-01 21:59 | NUR ---
PT ASSESSMENT DONE AND VSS. MEDS GIVEN AND WELL TOLERATED. FALL PRECAUTIONS IN PLACE. SLEEPING WELL WITH NEW SLEEP MED. HOURLY ROUNDING. CALL LIGHT IN REACH. WILL CONTINUE TO MONITOR.
--- NOTE | 2019-03-02 04:38 | NUR ---
PT REPORTED TESSIE WRAP WAS TOO TIGHT/PAINFUL AROUND LEFT ANKLE/FOOT. TESSIE WRAP LOOSENED AND ALSO GIVEN PAIN MED.
[2019-03-02 08:15] VITALS: BP 126/58
--- NOTE | 2019-03-02 12:27 | NUR ---
team meeting, recommendation: day ( pt, ot, nursing). sig other staying with him here. no dme needs. pt weaned off oxygen. will discuss with pt as to were going to stay with friend again.
--- NOTE | 2019-03-02 14:54 | NUR ---
ASSESSMENT CHARTED. PT ALERT AND ORIENTED. VSS. STERNUM PRECAUTION ENFORCED. WOUND VAC INTACT. WOUND CARE DRESSING ON THE LEFT LEG COMPLETED. UP IN THE CHAIR THIS SHIFT. PT PARTICIPATED IN PT/OT. NO CONCERNS AT THIS TIME. PROGRESSING WELL TOWARDS DISCHARGE GOAL. WILL CONTINUE TO MONITOR.
[2019-03-02 19:30] VITALS: BP 108/52
--- NOTE | 2019-03-03 04:33 | NUR ---
ASSUMED CARE AT APPROX 1900 EVENING 03/02. PT SITTING UP IN RECLINER AT CHANGE OF SHIFT DOZING OFF AND ON. PT ON ROOM AIR. CHEST WOUND VAC INCISION C/D/I WITH NO DRAINAGE IN CANISTER. 3 OPTIFOAM DRESSINGS TO CHEST C/D/I. TESSIE WRAP TO LEFT LEG INTACT. PT DENIES PAIN. PT TOOK HS MEDS WITH WATER TOLERATING WELL. PT SET UP WITH CPAP BY RESP THERAPY AND WORE MASK FOR APPROX 1.5 HRS. PT PREFERS TO SLEEP IN RECLINER. PT REMINDED TO KEEP LEGS ELEVATED IN CHAIR AND TO NOT UNLOCK CHAIR. PT ALSO REMINDED TO USE PILLOW FOR STERNAL PRECAUTIONS AND STATED HE WOULD TRY TO REMEMBER. PT UP TO BATHROOM WITH WALKER TO HAVE 1 BM TONIGHT SO FAR. CHAIR ALARM ON AND CALL LIGHT IN REACH. WILL CONTINUE TO MONITOR.
[2019-03-03 06:23] LABS: ABSOLUTE NEUTROPHILS 11.7 thou/uL (1.4-8.2); BASOPHILS 0.5 % (0.0-2.0); EOSINOPHILS 0.9 % (0.0-3.0); HEMATOCRIT 25.6 % (42.0-52.0); HEMOGLOBIN 7.9 gm/dL (14.0-18.0); LYMPHOCYTES 6.9 % (24.0-44.0); MCH 29.6 pg (26.0-34.0); MCHC 30.7 g/dL (28.0-37.0); MCV 96.7 fL (80.0-100.0); MONOCYTES 6.7 % (1.0-8.0); PLATELET COUNT 322 thou/uL (150-400); RBC 2.65 mil/uL (4.50-6.00); RDW 18.9 % (10.5-14.5); WBC 13.7 thou/uL (4.0-11.0)
[2019-03-03 06:39] LABS: CALCIUM 8.1 mg/dL (8.5-10.1); CREATININE 1.3 mg/dL (0.7-1.3); MAGNESIUM 1.9 mg/dL (1.8-2.4); POTASSIUM 4.1 mmol/L (3.5-5.1)
[2019-03-03 09:00] VITALS: BP 108/57
[2019-03-03 15:05] LABS: FOLIC ACID 9.4 ng/mL (8.6-58.9); TSH 1.776 uIU/mL (0.358-3.740)
--- NOTE | 2019-03-03 15:13 | NUR ---
Patient participated in community reintegration on 03/03/19 with OT. Refer to documentation by OT.
--- NOTE | 2019-03-03 15:15 | H ---
[facility] [place] [address] HISTORY AND PHYSICAL Name: POWELLKAI Room #: 516-1 ADM IN M.R.#: [id number] Admission: 02/26/19 Attend Phys: Kai Collins MD Discharge: Date of : 48 Report #: [id number] THIS REPORT FOR: //name// CC: Kai Collins [facility] unknown DATE OF SERVICE: 02/26/2019 POST ADMISSION PHYSICIAN EVALUATION HISTORY OF PRESENT ILLNESS: The patient has been admitted for acute in-hospital inpatient rehabilitation. Please see the full history and physical. I agree with the documentation examination, assessment and plan. The patient initially was admitted to [facility] with chest pain, found to have an elevated troponin. lab systems analyst revealed multivessel disease, was transferred to [facility] and underwent coronary artery bypass grafting on 02/16/2019. This was a coronary artery bypass grafting x 4. He had a slow recovery. He accidentally pulled his chest tube. Serial chest x-ray showed mild pneumothorax, has been on nasal prong O2 and has significant help from the SHER drain, had a sternal wound VAC to suction. He has had a significant functional decline from his premorbid status and has not been admitted for acute in-hospital inpatient rehabilitation. FAR PAST MEDICAL HISTORY, SOCIAL HISTORY, ALLERGIES AND HABITS: Please see the full history and physical. REVIEW OF SYSTEMS: No current complaints of chest pain, shortness of breath or abdominal discomfort. PHYSICAL EXAMINATION: GENERAL: A 68-year-old obese white male, in no obvious distress. The patient was seen earlier. He was alert, pleasant, follows basic commands. VITAL SIGNS: Temperature 36.6, pulse 71, respirations 22, blood pressure 116/64. HEENT: Facies were symmetric. CHEST: Sounded clear to auscultation. Sternal dressing was in place. LUNGS: He may have some decreased breath sounds to auscultation. CARDIOVASCULAR: Sounded regular rate and rhythm. ABDOMEN: Bowel sounds positive, nontender. GENITOURINARY AND RECTAL: Deferred. EXTREMITIES: With sternal precautions limiting upper extremity testing. Respiratory Therapy Technician are equal. Some decreased range of motion bilateral lower extremities due obesity and lower extremity edema. Strength is probably a grade 4-/5. Sit to stand is mod assist. He does ambulate a short distance with min assist without an assistive device. [address] [address] HISTORY AND PHYSICAL Name: POWELLKAI Room #: 516-1 [facility] IN ..#: [id number] Admission: 02/26/19 Attend Phys: Kai Collins MD Discharge: Date of : 48 Report #: [id number] ASSESSMENT: A 68-year-old white male with the following problem list: 1. Coronary artery disease, status post coronary artery bypass grafting x 4 on 02/16/2019. 2. Medical complexity with generalized debilitation. 3. Bronchitis. 4. Ischemic cardiomyopathy. 5. Peripheral arterial disease. 6. Obesity. 7. History of atrial fibrillation, rate controlled. 8. History of right rotator cuff repair. PLAN: The patient has been admitted for acute in-hospital inpatient stay. From a postadmission physician evaluation perspective, there are no relevant changes since the preadmission screening. Please see the noted review of prior and current functional and medical conditions and comorbidities. Please see the patient's previous and current functional status. As far as risk of complications, the patient has multiple medical comorbidities as noted above. Initial plan of care involves the interdisciplinary acute inpatient program. Measurable functional goals would be for the patient to become modified independent with transfers, mobility and ADLs, so he can hopefully return back to his prior living situation. Prognosis is reasonably good with estimated length of stay probably at least 5-10 days. Potential barriers would include his multiple medical comorbidities and decreased functional status. The patient meets diagnostic criteria for an acute in-hospital inpatient rehabilitation stay. He meets the medical necessity criteria. He does have the tolerance for therapies and has appropriate discharge goals back to the home setting. <ELECTRONICALLY SIGNED> By: Kai Collins MD 03/03/19 1515 1331 [id number] Kai Collins MD /nt
[2019-03-03 20:20] VITALS: BP 149/74
--- NOTE | 2019-03-03 20:59 | NUR ---
ASSUMED CARE AT 0700, A&O X 4, NO ACUTE DISTRESS NOTED. VS STABLE, O2 ON RA, WEARS CPAP AT HS. PT A DAILY WEIGH AND ON 2.5L FLIUD RESTRICTION. DENIES PAIN OR DISCOMFORT. IV TO STEFANIA STATLOCK.STERNAL INCISION WITH WOUND VAC IN PLACE, NO DRAINAGE NOTED IN CANNISTER. PT HAS [address], MINIMAL DRAINAGE NOTED. WOUND CARE DONE TO LLE, PER DR EDMONDSON PLACE OPTIFORM DRESSING OVER INCISION SITES AND CHANGE EVERY OTHER DAY/ NEEDED IF SATURATED. TOLERATE MEDS WHOLE WITH THIN LIQUIDS, BM TODAY, USES URINAL AND BR. ENCOURAGED PT TO KEEP LEGS ELEVATED TOLERATED. PT IN RECLINER, CALL LIGHT WITHIN REACH, WILL CONTINUE TO MONITOR PER POC.
[2019-03-03 22:23] VITALS: BP 149/74
--- NOTE | 2019-03-03 23:48 | NUR ---
PT ASSESSMENT COMPLETED AND VSS. MEDS GIVEN ORDERED AND WELL TOLERATED. FALL PRECAUTIONS IN PLACE. UP TO THE BATHROOM WITH ASST/GAIT/WHEELCHAIR. SOA WITH EXERTION. SAT WNL ON RA. PT REFUSED CPAP AND IS NOW ON 2L NC WHILE SLEEPING. PT UPSET BECAUSE HIS DID NOT COME IN TO VISIT THIS EVENING. WOUND VAC RUNNING ORDERED. ALL DRESSING DRY AND INTACT. ASST WITH REPOSITION FOR COMFORT. SLEEPING WELL. WILL CONTINUE TO MONITOR FREQUENTLY.
[2019-03-04 16:59] LABS: BE(vivo) 0.6 mmol/L (-2 to +3); HCO3 27.7 mmol/L (22.0-26.0); PCO2 58.8 mmHg (35.0-45.0); PO2 71.2 mmHg (80.0-100.0); sO2 92.2 % (92.0-98.0)
[2019-03-04 17:00] LABS: pH 7.291 (7.360-7.450)
--- NOTE | 2019-03-04 17:07 | NUR ---
SEISMOGRAPH HELPER activated-see flowsheet
[2019-03-04 17:18] LABS: HEMATOCRIT 26.6 % (42.0-52.0); HEMOGLOBIN 8.1 gm/dL (14.0-18.0); MCHC 30.4 g/dL (28.0-37.0); MCV 98.9 fL (80.0-100.0); RBC 2.69 mil/uL (4.50-6.00); RDW 18.7 % (10.5-14.5); WBC 15.5 thou/uL (4.0-11.0)
[2019-03-04 17:23] LABS: CALCIUM 9.2 mg/dL (8.5-10.1); CREATININE 1.4 mg/dL (0.7-1.3); POTASSIUM 4.8 mmol/L (3.5-5.1)
--- NOTE | 2019-03-04 19:33 | NUR ---
IV LASIX ADMINISTERED ORDERED. REPORTED TO ADRIAN SANTOS ON CCU.
--- NOTE | 2019-03-04 21:56 | NUR ---
ASSUMED CARE OF PT AT 0715. PT IS A&OX4, FORGETFUL, AND LETHARGIC, PT HAS PERIODS WHERE HE DRIFTS OFF DURING CONVERSATION AND IS SLURRING HIS WORDS. DURING AM THERAPIES PT HAD DESAT WHERE HE BECAME SOB AND HAD SPO2 IN 70'S AND WAS PLACED ON 1L OF O2. PT CONTINUED TO HAVE DESAT EPISODES AND O2 WAS GRADUALLY INCREASED TO 4L AND WOULD STILL HAVE DESAT EPISODES. VITAL SIGNS STABLE. ON ASSESSMENT PT WAS EDEMETOUS +3 TO BLE AND +2 TO BUE, GENERALIZED NON-PITTING EDEMA TO REMAINDER OF BODY. CHEST X-RAY OBTAINED AND PROVIDER NOTIFIED OF RESULTS. AFTER CONTINUED DESAT EPISODES AND SUSPECTED [place] EPISODE RAPID RESPONSE CALLED AND EKG SHOWED ACCELERATED JUNCTIONAL RHYTHM, ABG WITH CRITICAL LOW PH OF 7.291, WBC 15.5. DECISION MADE TO MOVE PT OFF UNIT, PT TO BE TRANSFERED TO CCU, CALLED REPORT TO CCU NURSE AND PT ASSITED TO CCU BY NURSING STAFF. SON CONTACTED ABOUT TRANSFER, UNABLE TO CONTACT GIRLFRIEND AT PROVIDED PHONE NUMBER.
--- NOTE | 2019-03-05 13:45 | EKG ---
[address] [place] [address] ELECTROCARDIOGRAM REPORT Name: CLARENCE POWELL Room #: 516-1 DIS IN .R.#: [id number] Admission: 02/26/19 Attend Phys: Clarence Collins MD Discharge: 03/04/19 Date of : 48 Report #: [id number] THIS REPORT FOR: //name// [facility] Test Date: 2019-03-04 Test Time: 16:40:31 Pat Name: CLARENCE RODRÍGUEZON Department: Room: 516 1 Gender: M Padded Box Sewer: Tenisha ESPINAL : 1950 Requested By: Janine Anderson Order Number: [id number] MD: Wang Slade Measurements Intervals [place] Rate: 90 P: DE: QRS: -178 QRSD: 175 T: 18 QT: 404 QTc: 495 Interpretive Statements Atrial fibrillation RBBB and LPFB Compared to ECG 02/20/2019 08:05:37 Electronically Signed On 03-04-2019 17:30:08 CALENDER ROLL OPERATOR by Wang Slade Electronically Signed On 03-05-2019 13:44:56 CALENDER ROLL OPERATOR by Wang Slade [email or web address] <ELECTRONICALLY SIGNED> By: Wang Slade MD 03/05/19 1344 1640 1640 Wang Slade MD /EPI
== END 2019-03-04 18:36 | disposition short-term general hospital (02) | DRG 947 ==
PROVIDERS: Internal Medicine; Nurse Practitioner; Nurse Practitioner Family; ADMIT Physical Medicine & Rehabilitation
PROC: 5A09557 Assistance with Respiratory Ventilation, Greater than 96 Consecutive Hours, Continuous Positive Airway Pressure (ICD-10-PCS; principal; 2019-02-27)
DX: R53.81 Other malaise (principal); J96.01 Acute respiratory failure with hypoxia; Z68.41 Body mass index [BMI] 40.0-44.9, adult; N17.9 Acute kidney failure, unspecified; I25.10 Atherosclerotic heart disease of native coronary artery without angina pectoris; E66.01 Morbid (severe) obesity due to excess calories; I25.5 Ischemic cardiomyopathy; I48.91 Unspecified atrial fibrillation; I73.9 Peripheral vascular disease, unspecified; G47.30 Sleep apnea, unspecified; F41.1 Generalized anxiety disorder; G31.84 Mild cognitive impairment of uncertain or unknown etiology; J20.9 Acute bronchitis, unspecified; R63.2 Polyphagia; I10 Essential (primary) hypertension; N18.9 Chronic kidney disease, unspecified; G47.00 Insomnia, unspecified; Z95.1 Presence of aortocoronary bypass graft; Z79.01 Long term (current) use of anticoagulants; Z88.8 Allergy status to other drugs, medicaments and biological substances; Z86.73 Personal history of transient ischemic attack (TIA), and cerebral infarction without residual deficits
CPT/HCPCS: 10112

== ENCOUNTER 2019-03-04 19:33 | Inpatient (IN) | payer OTHER ==
[~2019-03-04] VITALS: Ht 177.8 cm; Wt 135.0 kg
[~2019-03-04 19:33] MED LIST changes: +ADULT LOW DOSE81 MG PO; +DILTIAZEM 24HR180 M1 PO; +ELIQUIS5 MG PO; +FERREX 150 PLU1 EAC1 PO; +HYDROCODON-ACE1 EAC7 PO; +LOPRESSOR25 PO; +PACERONE 200 M200 M1 PO
--- NOTE | 2019-03-04 19:41 | NUR ---
LASIX IV PUSH 40 MG WAS GIVEN. THIS WAS CHARGED TO THE REHAB ACCOUNT AND IS DOCUMENTED ON THE REHAB EMAR DUE TO THIS BEING ORDERED ON THE REHAB UNIT. PHARMACY WAS NOTIFIED OF THIS AND PT'S PRIMARY RN ON CCU DANIELLE WAS ALSO NOTIFIED THAT THIS WAS GIVEN. PT CURRENTLY SLEEPING SOUNDLY WITH O2 SAT 98% ON CPAP.
[2019-03-04 20:16] VITALS: BP 128/56
[2019-03-04 23:59] VITALS: BP 116/49
[2019-03-05 02:58] VITALS: BP 119/51
[2019-03-05 04:51] LABS: HEMATOCRIT 26.5 % (42.0-52.0); HEMOGLOBIN 8.2 gm/dL (14.0-18.0); MCH 30.3 pg (26.0-34.0); MCHC 30.8 g/dL (28.0-37.0); MCV 98.4 fL (80.0-100.0); RBC 2.69 mil/uL (4.50-6.00); RDW 18.3 % (10.5-14.5); WBC 11.9 thou/uL (4.0-11.0)
[2019-03-05 05:01] LABS: CALCIUM 8.8 mg/dL (8.5-10.1); CREATININE 1.4 mg/dL (0.7-1.3); POTASSIUM 4.5 mmol/L (3.5-5.1)
--- NOTE | 2019-03-05 06:22 | NUR ---
PATIENTS CARES WERE ASSUMED AT SHIFT CHANGE. PATIENT WAS ASSESSED AND MEDS WERE PASSED. ORDERRS WERE OBTAINED APPROX 2100 AND CARRIED OUT. PATIENT KEEPS TAKING OFF BI PAP. ON CONTINUS PULSE OX. HOULY ROUNDING WAS MADE. THE BED IS IN A LOW AND LOCKD POSITION. PASSED IN REPORT TO NOT GET PATIENT OUT OF BED UNTIL PT AND OT CAN EVALUATE HIM. HOURLY ROUNDS WERE DONE.
--- NOTE | 2019-03-05 07:32 | NUR ---
chart review. pt came down from acute rehab rt changes in medical condition. pt is a & o x 3 with some forgetfulness and confusion at time. prior to hospital he was working [employer]. fe his girl friend and him lived with friends. cecilia was independent prior to hospital. had cardiac hx in past. worked at [employer]. has fww " if has not went missing i got walker last time in hospital. had been weaned down on 2 on acute rehab and had to be placed on o2 and bipap. noted in chart pt has been taking bipap off. last visit with cecilia and girl fe both reported at dc that the water and electricity were going to be turned back on so their going to cont to live friend. he wants to use primary care dr here. family # [phone] to see if accepting of new pt and if take pt insurance [employer] plan. will cont following as needed for dc needs.
[2019-03-05 08:00] VITALS: BP 118/53
[2019-03-05 12:00] VITALS: BP 104/52
[2019-03-05 14:23] LABS: BE(vivo) 2.2 mmol/L (-2 to +3); HCO3 30.9 mmol/L (22.0-26.0); sO2 94.4 % (92.0-98.0)
[2019-03-05 14:24] LABS: PCO2 74.2 mmHg (35.0-45.0); pH 7.237 (7.360-7.450)
--- NOTE | 2019-03-05 16:46 | NUR ---
ASSUMED CARE 0700, ALERT X4, ANXIOUS, DENIES CHEST PAIN, SOB WITH ADL'S. UP TO CHAIR WITH OT WITH MIN ASSIST WITH GAITBELT. CONTINENT TO INCONTINET OF BLADDER. BM TODAY.NSR WITH BBB ON TELE TODAY. CRITICAL ABG REPORTED AT 1430 WITH ORDERS FOR BIPAP 01/24 WITH FO2 40%, RT PLACED BIPAP. DRESSING FROM POST CABG REDRESSED BY ONELIA CHEST DRESSING TO REMAIN IN PLACE LEFT LEG DRESSING TO REPLACE DAILY OR IF SATURATED. ENCOURAGED ELEVATING LEGS IF CAN TOLERATE AND NOT DE-SATURATE. PLANS FOR THORACENTESIS ON FRIDAY, HOLD BLOOD THINNERS ON FRIDAY. CONTINUES ON CONTINOUS O2 SATURATIONS. TOLERATING BIPAP. CALLS FOR ASSISTANCE. FAMILY FRIEND BEDSIDE. FALL PRECAUTIONS IN PLACE.
[2019-03-05 20:50] VITALS: BP 125/39
[2019-03-05 21:36] LABS: BE(vivo) 5.5 mmol/L (-2 to +3); HCO3 33.4 mmol/L (22.0-26.0); PCO2 71.1 mmHg (35.0-45.0); PO2 93.7 mmHg (80.0-100.0)
[2019-03-06 04:07] LABS: CALCIUM 8.8 mg/dL (8.5-10.1); CREATININE 1.3 mg/dL (0.7-1.3); MAGNESIUM 1.8 mg/dL (1.8-2.4); POTASSIUM 4.8 mmol/L (3.5-5.1)
[2019-03-06 04:41] LABS: ABSOLUTE NEUTROPHILS 9.1 thou/uL (1.4-8.2); BASOPHILS 0.2 % (0.0-2.0); EOSINOPHILS 1.1 % (0.0-3.0); HEMATOCRIT 26.2 % (42.0-52.0); HEMOGLOBIN 8.1 gm/dL (14.0-18.0); LYMPHOCYTES 6.1 % (24.0-44.0); MCH 30.2 pg (26.0-34.0); MCHC 30.9 g/dL (28.0-37.0); MCV 97.7 fL (80.0-100.0); POLYS 83.6 % (36.0-66.0); RBC 2.69 mil/uL (4.50-6.00); RDW 17.3 % (10.5-14.5); WBC 10.8 thou/uL (4.0-11.0)
[2019-03-06 04:44] LABS: PLATELET COUNT 442 thou/uL (150-400)
[2019-03-06 04:55] VITALS: BP 127/62
[2019-03-06 05:23] LABS: HCO3 33.1 mmol/L (22.0-26.0); PO2 94.9 mmHg (80.0-100.0); sO2 96.1 % (92.0-98.0)
[2019-03-06 05:24] LABS: PCO2 71.4 mmHg (35.0-45.0); pH 7.284 (7.360-7.450)
--- NOTE | 2019-03-06 05:56 | NUR ---
ASSUMED PT CARE AROUND 1900. A&OX4, FORGETFUL. DENIES ANY PAIN. PT REQUESTED TO SLEEP IN CHAIR DURING THE NIGHT. PT OFTEN REQUESTED TO TAKE OFF BIPAP TO DRINK WATER. PT ENCOURAGED TO KEEP BIPAP ON MUCH POSSIBLE. PT SLEPT MOST OF THE NIGHT. O2 SATS STABLE ON BIPAP. VOIDS PER URINAL. ENCOURAGED TO KEEP BLE ELEVATED WHEN IN CHAIR, TO HELP REDUCE SWELLING. FALL PRECAUTIONS IN PLACE. PROGRESSING SLOWLY TOWARD POC GOALS.
[2019-03-06 07:37] VITALS: BP 112/60
[2019-03-06 10:58] VITALS: BP 109/54
--- NOTE | 2019-03-06 11:28 | 2DMMODE ---
[address] [address] 2 D/M-MODE ECHOCARDIOGRAM Name: CLARENCE POWELL Room #: 211-P [facility] IN .R.#: [id number] Admission: 03/04/19 Attend Phys: Roberto York MD Discharge: Date of : 48 Report #: [id number] THIS REPORT FOR: //name// APPROVED REPORT Study performed: 03/06/2019 10:20:14 EXAM: Comprehensive 2D, Doppler, and color-flow Echocardiogram Patient Location: In-Patient Room #: [facility] Status: routine BSA: 2.48 HR: 96 bpm Rhythm: Tachycardia Other Information Study Quality: Technically Limited Indications Dyspnea CAD Palpitations Hypertension/HDD Echo Enhancing Agent Indication: Endocardial border delineation Agent(s) / Amount(s) Used: Optison 4 cc Comments: VERY TDS. 2D Dimensions LV Single Plane 4CH: 68.94 % LV Single Plane 2CH: 49.43 % Aortic Valve AoV Peak Jarrod.: 0.60 m/s AO Peak Gr.: 1.43 mmHg AO Mean Gr.: 0.73 mmHg AO V2 Mean: 0.39 m/s AO V2 VTI: 10.38 cm Mitral Valve MV E Max Jarrod.: 1.17 m/s Tricuspid Valve [facility] [address] [place] [address] 2 D/M-MODE ECHOCARDIOGRAM Name: CLARENCE POWELL Room #: 211-P ADM IN M.R.#: [id number] Admission: 03/04/19 Attend Phys: Roberto York MD Discharge: Date of : 48 Report #: [id number] Peak Jarrod.: 2.67 m/s TR Peak Gr.: 28.58 mmHg Left Ventricle The left ventricle is normal size. Mild concentric left ventricular hypertrophy. The left ventricular systolic function is normal. The left ventricular ejection fraction is within the normal range. LVEF is 55-60%. Right Ventricle The right ventricle is normal size. The right ventricular systolic function is normal. Aortic Valve Aortic valve leaflets are mildly thickened. Doppler evaluation demonstrated normal velocities Very limited images. Pericardium There is no pericardial effusion. <Conclusion> The left ventricle is normal size. LVEF is 55-60%. Aortic valve leaflets are mildly thickened. Doppler evaluation demonstrated normal velocities Very limited images. There is no pericardial effusion. <ELECTRONICALLY SIGNED> By: Chris Dover MD 03/06/19 1127 1127 [id number] Chris Dover MD /INF
--- NOTE | 2019-03-06 16:25 | NUR ---
ASSUME CARE 0700. REMAINS ORIENTED X4 WITH FORGETFULNESS, DENIES SOB, DENIES CHEST PAIN, BIPAP REMOVED AND CONTINUES ON NASAL CANNULA 6L WITH RT ROUNDING. PER RT PATIENT IS MAINTAINING O2 SATS WNL. PT WILL HAVE THORASNETESIS ON FRIDAY. DRESSINGS TO CHEST TUBE SITES AND STERNAL INCISSION REMAIN C/D/I, DRESSING ON LOWER EXTREMITY REQUIRED REDRESSINGS THEY BECOME SATURATED. CONTINUE TO EDUCATE PATIENT TO ELEVATE LEGS WHILE IN THE CHAIR. CONITENT WITH URINAL AND COMMODE FOR BM TODAY ASSIST X1. FALL PRECATIONS IN PLACE AND CALLS FOR ASSISTANCE. CALM AND COMPLIANT WITH CARES. GIRLFRIEND STAYS IN PATIENTS ROOM WITH HER PERSONAL BELONGINGS ON THE COUCH AND WINDOW SEAL AREA AND FLOOR. EDUCATED THE IMPORTANCE OF KEEPING THE AREA NEXT TO PATIENT FREE OF CLUTTER IN ORDER TO PROVIDE PATIENT CARE.
[2019-03-06 16:50] LABS: HEMATOCRIT 27.7 % (42.0-52.0); HEMOGLOBIN 8.5 gm/dL (14.0-18.0); MCHC 30.8 g/dL (28.0-37.0); MCV 97.5 fL (80.0-100.0); RBC 2.85 mil/uL (4.50-6.00); RDW 17.7 % (10.5-14.5); WBC 9.5 thou/uL (4.0-11.0)
[2019-03-06 17:02] LABS: INR 1.2; PROTIME 12.1 Seconds (9.3-11.4)
[2019-03-06 17:50] VITALS: BP 111/37
[2019-03-06 19:06] VITALS: BP 114/45; BP 114/78
[2019-03-06 22:35] LABS: ABSOLUTE NEUTROPHILS 7.5 thou/uL (1.4-8.2); BASOPHILS 0.3 % (0.0-2.0); EOSINOPHILS 1.2 % (0.0-3.0); HEMATOCRIT 26.7 % (42.0-52.0); HEMOGLOBIN 8.1 gm/dL (14.0-18.0); MCH 29.9 pg (26.0-34.0); MCHC 30.4 g/dL (28.0-37.0); MCV 98.1 fL (80.0-100.0); MONOCYTES 11.7 % (1.0-8.0); PLATELET COUNT 448 thou/uL (150-400); POLYS 80.8 % (36.0-66.0); RBC 2.72 mil/uL (4.50-6.00); RDW 17.5 % (10.5-14.5); WBC 9.3 thou/uL (4.0-11.0)
[2019-03-06 23:40] VITALS: BP 108/54
[2019-03-07 04:12] VITALS: BP 116/59
[2019-03-07 07:38] VITALS: BP 132/57
--- NOTE | 2019-03-07 07:58 | NUR ---
CALLED AND CLARIFIED ABOUT HEPARIN DRIP RE-BOLUS AND TITRATION. PER MD, MD ONLY DID NOT WANT INITIAL BOLUS THAT WE CAN RE-BOLUS MUCH WE NEED TO. REPLAYED TO PHARMACY TOO THAT MD WANTS TITRATION AND RE-BOLUS. PER MD, PUT PT ON NPO AFTER MN FOR POSSIBLE US THORACENTESIS. INFORMATION RELAYED TO INCOMING RN. CARE TRASFERRED TO INCOMING RN AT THIS TIME.
[2019-03-07 11:27] VITALS: BP 137/65
[2019-03-07 15:42] VITALS: BP 125/55
--- NOTE | 2019-03-07 17:04 | NUR ---
PT CARE ASSUMED APPROX 0700. ASSESSMENTS CHARTED. PT DENIES SOA. REPORTED MILD PAIN ONCE. REPORTS ADEQUATE PAIN MANAGEMENT. VSS. UP WITH WALKER. SPOUSE AT BEDSIDE. LLE DSGs CHANGED PER REQUEST FROM CVT GUS ROUSSEAU. STERNAL DSG C/D/I. PT TOLEARATING POC. HEP GTT REMAINS TO POC. NO DISTRESS NOTED.
[2019-03-07 19:45] VITALS: BP 147/63
[2019-03-08 04:10] VITALS: BP 110/59
--- NOTE | 2019-03-08 06:36 | NUR ---
A/O X 4. AT BEDSIDE.ON HEPARIN GTT TITRATED PER PROTOCOL.WAS ON BIPAP ALMOST ALL NIGHT.NPO SINCE MIDNIGHT FOR A POSSIBLE THORACENTESIS TODAY.TALKED TO MICHAEL IN ULTRASOUND ABOUT THE POSSIBLE THORACENTESIS.HEPARIN GTT STOPPED AT 0630 AM PER MICHAEL.PATIENT VERBALIZED HE'S ANXIOUS ABOUT THE PROCEDURE.PAGED DECORATIVE ENGRAVER APPRENTICE FOR SOME ANXIETY MEDS.STILL WAITING FOR CALL BACK.POC CONTINUED.
[2019-03-08 08:00] VITALS: BP 117/62
--- NOTE | 2019-03-08 09:10 | NUR ---
Assess due to high BMI 42.7=extreme class III obesity. Familiar with pt from recent CABG on 02/16 and provided diet education on heart healthy diet. Was transferred to acute rehab, then back to acute unit for pleural effusion, need for bipap. NPO for thoracentesis. Wts up about 10 lb from his standing preop wt. Has 3+ bilateral leg/feet edema and requires torsemide. Appetite has remained >75%. Low nutrition risk
[2019-03-08 11:09] LABS: CALCIUM 9.1 mg/dL (8.5-10.1); CREATININE 1.1 mg/dL (0.7-1.3); POTASSIUM 4.4 mmol/L (3.5-5.1)
--- NOTE | 2019-03-08 12:21 | NUR ---
ASSUMED CARE 0700,ORIENTED X4, CONTINUES ON 6L NASAL CANNULA, DENIES PAIN DENIES SOB, USES URINAL, NO BM AT THIS TIME. THORASENTESIS COMPLETED TOOL 1L OFF. DRESSING TO LE CHANGED. CM LOOKING TO SEE IF HE WILL TRANSFER TO REHAB TODAY. ENCOURAGE AMBULATIONS THROUGH OUT THE SHIFT. CALL LIGHT IN REACH. SHOWER GIVEN BY FAMILY MEMEBER TODAY.
--- NOTE | 2019-03-08 12:59 | NUR ---
CLOTH DOUBLING MACHINE OPERATOR RECEIIVED NOTIFICATION THAT DR. MCMAHON WOULD LIKE PATIENT BACK IN REHAB SOON POSSIBLE. AUTHORIZATION REQUEST INITIATED THIS DATE. WILL AWAIT RESPONSE FROM INSURANCE. BAND SEWER AWARE THAT AUTH HAS BEEN REQUESTED. THANK YOU FOR THIS REFERRAL.
--- NOTE | 2019-03-08 13:14 | NUR ---
RECIEVE REPORTY FROM DEMARIO CAMPBELL AND [place] [place] WHO ONFORMED TO RESTART HEPARIN GTT AT 1500 TODAY AND PT CAN HAVE LIQUIDS. INSTRUCT PT ON ISE OF ICENTIVE SPIROMETER. WILL CONTINUE TO ASSESS.
[2019-03-08 14:17] LABS: COLOR RED; SOURCE LT CHEST; TOTAL VOLUME 35 mL
[2019-03-08 14:18] LABS: CLARITY CLOUDY
[2019-03-08 14:32] LABS: BF NUCLEATED CELLS 976; BF RBC 89648
--- NOTE | 2019-03-08 14:47 | NUR ---
spoke with [facility] acute rehab who has called insurance to initate obtaining auth for acute rehab.
--- NOTE | 2019-03-08 15:29 | NUR ---
RESTART HEPARIN GTT 1T THIS TIME. RECIEVED REPORT ON PT FROM TYLER CAMPBELL AT 1300 TODAY AND SHE DID NOT NO THE RATE OF THE GTT INFUSION BEFORE IS WAS STOPPED BY LUX RN. RECHECK CHARTING AND COMPLETE HEPARIN CALCULATION WITH SHU NEWTON PHARMICIST. WILL CONTINUE TO ASSESS.
[2019-03-08 16:00] VITALS: BP 115/56
[2019-03-08 16:21] LABS: BF MACROPHAGE 14; BF NEUTROPHILS 42
--- NOTE | 2019-03-08 18:43 | NUR ---
INSTRUCT PT THAT HE WILL WALK ONE MORE TIME WITH NIGHT RN.
[2019-03-08 19:34] VITALS: BP 135/61
--- NOTE | 2019-03-09 04:26 | NUR ---
ASSUMED PT CARE 1900. PT IS ALERT AND ORIENTED. NO SIGN OF DISTRESS NOTED IN PT. SPOUSE AT BEDSIDE. PT IS CONCERNED ABOUT WOUND TO LEFT LEG IT WAS DRAINING AND PAINFUL. PAIN MEDICATION ADMINISTERED TO PT UPON REQUEST. FALL PRECAUTION IN PLACE. SCHEDULED MEDS ADMINISTERED TO PT. PT TOLERATED PO INTAKE. BIPAP PLACED ON PT AT BEDTIME. BIPAP ON THROUGHOUT THE NIGHT. DENIES ANY FURTHER NEEDS AT THIS TIME.
[2019-03-09 06:53] LABS: HEMATOCRIT 23.2 % (42.0-52.0); HEMOGLOBIN 7.2 gm/dL (14.0-18.0); MCHC 31.1 g/dL (28.0-37.0); MCV 96.5 fL (80.0-100.0); RBC 2.41 mil/uL (4.50-6.00); RDW 16.7 % (10.5-14.5); WBC 6.3 thou/uL (4.0-11.0)
[2019-03-09 08:00] VITALS: BP 114/59
[2019-03-09 09:22] LABS: SOURCE CHEST
[2019-03-09 12:00] VITALS: BP 119/61
[2019-03-09 13:46] LABS: BE(vivo) 14.2 mmol/L (-2 to +3); PCO2 68.6 mmHg (35.0-45.0); PO2 70.3 mmHg (80.0-100.0); pH 7.394 (7.360-7.450); sO2 93.3 % (92.0-98.0)
--- NOTE | 2019-03-09 13:53 | NUR ---
[facility] has auth from insurance once patient medically stable.
[2019-03-09 13:55] VITALS: BP 102/58; BP 102/60; BP 115/65
--- NOTE | 2019-03-09 16:06 | PATH ---
[facility] [address] [place] [address] PATHOLOGY RPT PROCEDURE Name: CLARENCE POWELL Room #: 211-P ADM IN ..#: [id number] Admission: 03/04/19 Date of : 48 Discharge: Report #: [id number] Path Case #: [id number] Note [facility] Accession Number: [id number] TESTS RESULT FLAG UNITS REF RANGE LAB Clinician Provided Cytology Information No. of containers..01 Other (Miscellaneous) Source: 01 PLEURAL FLUID DIAGNOSIS: 02 PLEURAL FLUID NEGATIVE FOR MALIGNANT EPITHELIAL CELLS. THIS INTERPRETATION INCLUDES EVALUATION OF A CELL BLOCK. INFILTRATE COMPRISED OF REACTIVE MESOTHELIAL CELLS AND ABUNDANT LYMPHOCYTES. Pathologist ICD10: 02 J90 Signed out by: 02 Annie Rea MD, Pathologist NPI- [id number] Performed by: Maryann Smith, Dispatch Coordinator ([facility]) Gross description: 01 10ML, CLOUDY ORANGE, 1 TP 1CB /LCS 03/08/2019 1748 Local FLAG LEGEND: L-Low Normal,H-High Normal,LL-Alert Low,HH-Alert High <-Panic Low,>-Panic High,A-Abnormal,AA-Critical Abnormal Performed at: [address] [place] [address] Nilesh Godinez MD, [address] [address] Annie Rea MD, Specimen Comment: A courtesy copy of this report has been sent to [phone], [phone] Specimen Comment: [phone] Specimen Comment: Report sent to / DR RAM Specimen Comment: A duplicate report has been generated due to demographic updates. Performed at: [address], [place], [place] [id number] [address] [address] PATHOLOGY RPT PROCEDURE Name: CLARENCE POWELL Room #: 211-P [facility] IN M.R.#: [id number] Admission: 03/04/19 Date of : 48 Discharge: Report #: [id number] Path Case #: [id number] MD Nilesh Godinez MD Phone: [phone]
[2019-03-09 16:10] LABS: BODY FLUID ALBUMIN 1.7 g/dL (Not Estab.); BODY FLUID AMYLASE 19 U/L (()); BODY FLUID GLUCOSE 114 mg/dL (()); BODY FLUID LDH 357 IU/L (())
--- NOTE | 2019-03-09 16:13 | HC ---
[facility] [address] [place] [address] CONSULTATION Name: CLARENCE POWELL Tabby Room #: 211-P [facility] IN M.R.#: [id number] Admission: 03/04/19 Attend Phys: Roberto York MD Discharge: Date of : 48 Report #: [id number] THIS REPORT FOR: //name// CC: FAM unknown Roberto York DATE OF SERVICE: 03/08/2019 WOUND CARE CONSULTATION CHIEF COMPLAINT: Left leg wounds. HISTORY OF PRESENT ILLNESS: This is a pleasant white male, who we have been asked to evaluate and treat for slow healing wound on his left lower extremity, status post vein harvest from coronary artery bypass grafting x 4 on 02/16/2019. Recently, the wounds have been draining secondary to fluid overload on the patient and edema bilateral lower extremities. The patient states he has essentially no pain associated with these wounds. The PA for Dr. Hodge requested our help given the fact that the wounds are slow to heal and persistently draining. The patient had been up on rehab, but recently was readmitted to the acute care floor secondary to shortness of breath. The patient states he has never had any other wounds he could not heal on his own. PAST MEDICAL DISEASES: Significant for morbid obesity, peripheral arterial disease, congestive heart failure, atrial fibrillation, coronary artery bypass grafting x 4, hypertension. CURRENT MEDICATIONS: Multiple, I reviewed patient's medication list. DRUG ALLERGIES: ATARAX. SOCIAL HISTORY: The patient denies tobacco or alcohol use. FAMILY HISTORY: Not pertinent to current medical condition. REVIEW OF SYSTEMS: CONSTITUTIONAL: The patient denies fevers or chills. NEUROLOGIC: The patient denies overall generalized weakness, but no isolated weakness in arms or legs. EYES: No complaints. ENT: No complaints. CARDIAC: The patient has chronic lower extremity edema, but denies chest pain or palpitations. RESPIRATORY: The patient has shortness of breath, which is improving on IV Lasix. Denies associated cough. GASTROINTESTINAL: The patient denies nausea, vomiting, or abdominal pain. [facility] [address] [place] [address] CONSULTATION Name: CLARENCE POWELL Tabby Room #: 211-P [facility] IN ..#: [id number] Admission: 03/04/19 Attend Phys: Roberto York MD Discharge: Date of : 48 Report #: [id number] GENITOURINARY: The patient denies urgency or frequency. MUSCULOSKELETAL: No complaints. SKIN: There is surgical wound on the mid sternal region of the anterior chest wall as well as a surgical wound from a vein harvesting on the left lower extremity. PHYSICAL EXAMINATION: VITAL SIGNS: The patient is afebrile, pulse 95, BP 117/62. GENERAL: This is an alert and oriented x 3 pleasant white male, who is in no obvious distress. HEENT: Normocephalic, atraumatic. Mucous membranes are moist. Pupils are round. Sclerae are white. NECK: Supple and nontender. LUNGS: Slightly diminished breath sounds heard throughout. HEART: Irregularly irregular. Midline sternal wound has a fresh dressing in place without drainage. ABDOMEN: Obese, soft, and nontender. EXTREMITIES: The patient has 3+ edema with weeping on the left lower extremity with associated surgical wounds, which are 100% slough filled, but no signs of purulence or fluctuance. There is no significant tunneling or undermining. No other associated wounds are noted. NEUROLOGIC: Cranial nerves 2-12 are grossly intact. Motor and sensory are grossly intact. LABORATORY VALUES: White count is 9.3 and hemoglobin 8.1. WOUND CARE COURSE: I spoke at length with the patient and his and stated at this time, we will start gentamicin, Xeroform, ABDs to the wounds, and have Kerlix and Thien from toes to knee for compression for the left lower extremity and we will have the patient elevate his legs as much as possible. IMPRESSION: 1. Nonhealing surgical wounds, left lower extremity, status post vein harvest. 2. Status post coronary artery bypass grafting x 4. 3. History of coronary artery disease. 4. Morbid obesity. 5. Generalized debility. PLAN: We will do the above dressings as stated. We will continue to follow the patient closely. I appreciate the ability to consult. We will continue to follow. <ELECTRONICALLY SIGNED> By: Artem Berrios MD 03/09/19 1613 1335 51 Artem Berrios MD /nt
[2019-03-09 17:46] VITALS: BP 115/50
[2019-03-09 18:10] LABS: HEMATOCRIT 25.6 % (42.0-52.0)
[2019-03-09 20:11] VITALS: BP 112/46
--- NOTE | 2019-03-10 03:50 | NUR ---
PT ALERT AND ORIENTED. LE DRESSING CHANGED DUE TO SATURATION. BIPAP MAINTAINED OVERNIGHT. FAMILY AT BEDSIDE. PAIN IN THE LE REPORTED. PAIN MEDS GIVEN ORDERED.DENIES CHEST PAIN,NAUSEA OR VOMITING. ANTICIPATE TO TRANSFER TO REHAB.NO FURTHER CONCERN .WILL CONTINUE WITH POC.
[2019-03-10 03:57] VITALS: BP 105/54
[2019-03-10 05:36] LABS: HEMATOCRIT 25.7 % (42.0-52.0); MCH 29.6 pg (26.0-34.0); MCHC 31.2 g/dL (28.0-37.0); MCV 94.8 fL (80.0-100.0); PLATELET COUNT 415 thou/uL (150-400); RBC 2.71 mil/uL (4.50-6.00); RDW 17.3 % (10.5-14.5); WBC 6.5 thou/uL (4.0-11.0)
[2019-03-10 05:46] LABS: ALBUMIN 1.9 g/dL (3.4-5.0); CALCIUM 8.9 mg/dL (8.5-10.1); CREATININE 1.2 mg/dL (0.7-1.3); MAGNESIUM 1.9 mg/dL (1.8-2.4); POTASSIUM 4.3 mmol/L (3.5-5.1); TOTAL BILIRUBIN 0.7 mg/dL (<0.1-1.0); TOTAL PROTEIN 6.1 g/dL (6.4-8.2)
[2019-03-10 07:00] VITALS: BP 107/57
[2019-03-10 08:38] LABS: ABSOLUTE NEUTROPHILS 4.9 thou/uL (1.4-8.2); NUCLEATED RBCS 1 /100WBC
[2019-03-10 08:39] LABS: PLATELET ESTIMATE INCREASED
[2019-03-10 10:30] VITALS: BP 105/72
--- NOTE | 2019-03-10 11:34 | NUR ---
WOUND CARE F/U DR REESE ASSESSED WOUNDS YESTERDAY, ROUNDING W/ DR ROSS VIRK THIS AM, ASSESSED LEFT LOWER LEG WOUNDS, LARGE AMT REDDIISH/PINK DRAINAGE FROM LOWER LEG WOUND W/ SUTURES IN PLACE, WOUND WELL APPROXIMATED, 2 WOUNDS PRESENT UPPER LEG LEG/MARTINEZ AREA, SCANT DRAINAGE, PT ALERT, COOPERATIVE, EDEMA PRESENT,ERYTHEMA PRESENT RECOMMENDATIONS, CONT W/ CURRENT TX PLAN OF GENTAMICIN, XEROFORM GAUZE, KERLIX TESSIE WRAP PER ORDERS DAILY DIRECTOR OF CHANNEL MARKETINGADRIAN TAFOYA
[2019-03-10] MEDS ORDERED: MUCINEX600 MG PO (12:04)
[2019-03-10] MEDS ORDERED: ZOSYN 3.3753.375 GM IV (12:04)
[2019-03-10] MEDS ORDERED: COLACE 100 MG100 MG PO (12:04)
[2019-03-10] MEDS ORDERED: MELATONIN5 M1 PO (12:04)
[2019-03-10] MEDS ORDERED: GENTAMICIN SULF15 GM TOP (12:04)
[2019-03-10] MEDS ORDERED: ACETAMINOPHEN325 M1 PO (12:04)
[2019-03-10] MEDS ORDERED: IPRAT-ALBUT 0.5-3 ML INH (12:04)
[2019-03-10] MEDS ORDERED: TRAZODONE HCL100 MG PO (12:04)
[2019-03-10] MEDS ORDERED: TORSEMIDE20 MG PO (12:04)
--- NOTE | 2019-03-10 15:18 | NUR ---
ASSUMED CARE OF PT AT SHIFT CHANGE. ASSESSMENTS CHARTED. MEDS GIVEN PER APR. VSS. PT A&OX4. MEDS OFFERS FOR PAIN, BUT DECLINED. LEFT LEG WOUNDS RE-DRESSED PER WOUND CARE. PT ON 2L NC, NO C/O SOA. DISCHARGE ORDERS COMPLETE. TELE DC'D. ALL BELONGINGS SENT WITH PT. TRANSPORTED BY VOLUNTEER VIA WHEELCHAIR TO [facility].
--- NOTE | 2019-03-10 15:19 | NUR ---
patient to dc ot acute rehab [facility] today.
== END 2019-03-10 15:30 | DRG 177 ==
LOC: 2N 19:33 → ENTRNSPT 03-10 15:14 → EDTRNSPTSTS 03-10 15:19 → 2N 03-10 15:30
PROVIDERS: Internal Medicine Pulmonary Disease; Nurse Practitioner Adult Health; Nurse Practitioner Family; Pediatrics; ADMIT Internal Medicine
DX: J15.6 Pneumonia due to other Gram-negative bacteria (principal); I50.31 Acute diastolic (congestive) heart failure; J96.21 Acute and chronic respiratory failure with hypoxia; J96.22 Acute and chronic respiratory failure with hypercapnia; N17.9 Acute kidney failure, unspecified; J90 Pleural effusion, not elsewhere classified; Z68.41 Body mass index [BMI] 40.0-44.9, adult; I13.0 Hypertensive heart and chronic kidney disease with heart failure and stage 1 through stage 4 chronic kidney disease, or unspecified chronic kidney disease; L03.116 Cellulitis of left lower limb; T81.40XA Infection following a procedure, unspecified, initial encounter; E66.01 Morbid (severe) obesity due to excess calories; G47.33 Obstructive sleep apnea (adult) (pediatric); R53.81 Other malaise; I25.10 Atherosclerotic heart disease of native coronary artery without angina pectoris; I25.5 Ischemic cardiomyopathy; I48.91 Unspecified atrial fibrillation; I73.9 Peripheral vascular disease, unspecified; D64.9 Anemia, unspecified; G47.00 Insomnia, unspecified; R60.1 Generalized edema; R19.7 Diarrhea, unspecified; B96.3 Hemophilus influenzae [H. influenzae] as the cause of diseases classified elsewhere; J10.1 Influenza due to other identified influenza virus with other respiratory manifestations; B96.89 Other specified bacterial agents as the cause of diseases classified elsewhere; J40 Bronchitis, not specified as acute or chronic; E78.5 Hyperlipidemia, unspecified; N18.9 Chronic kidney disease, unspecified; Z88.8 Allergy status to other drugs, medicaments and biological substances; Z95.1 Presence of aortocoronary bypass graft; Z79.01 Long term (current) use of anticoagulants; Z79.899 Other long term (current) drug therapy; Z79.82 Long term (current) use of aspirin; Z86.73 Personal history of transient ischemic attack (TIA), and cerebral infarction without residual deficits; Y83.8 Other surgical procedures as the cause of abnormal reaction of the patient, or of later complication, without mention of misadventure at the time of the procedure; Y92.89 Other specified places as the place of occurrence of the external cause
CPT/HCPCS: 10081

== ENCOUNTER 2019-03-09 16:16 | Inpatient (IN) | payer OTHER ==
[~2019-03-09] VITALS: Ht 177.8 cm; Wt 135.0 kg
--- NOTE | ~2019-03-09 | PLAN ---
[facility] [address] [place] [address] REHAB UNIT PLAN OF CARE Name: KAI POWELL Room #: 516-1 [facility] IN M.R.#: [id number] Admission: 03/10/19 Attend Phys: Kai Collins MD Discharge: 03/12/19 Date of : 48 Report #: [id number] THIS REPORT FOR: //name// CC: aKi Collins [facility] unknown DATE OF SERVICE: 03/12/2019 PROGRESS NOTE/OVERALL PLAN OF CARE SUBJECTIVE: The patient is seen back today in followup. No specific distress. He may have some decline with increased activity of his O2 saturation that then will improve once his increased exertion has stopped. He is currently on 5 liters. Mid sternal incision appears to be healing well. Left lower extremity is dressed. He has the sternal precautions. This makes it difficult as far as basic sit to stand transfers. In occupational therapy, lower body dressing has been min assist. As far as speech therapy, he had a video swallow study with recommendations for mechanical soft, thin liquids with safe swallowing precautions. He needs significant assistance with basic sit to stand transfers and part of this is complicated with his sternal precautions. He appears to have some cognitive issues with decreased insight. Speech therapy is further assessing. ASSESSMENT: 1. Possible acute metabolic/hypoxic encephalopathy. 2. Medical complexity with generalized debilitation. 3. Pleural effusion, status post thoracentesis on 03/08/2019. 4. Acute respiratory failure with Haemophilus parainfluenza pneumonia. 5. Coronary artery disease, status post coronary artery bypass graft x 4. 6. Left lower extremity cellulitis. 7. Obstructive sleep apnea. 8. Ischemic cardiomyopathy. 9. Atrial fibrillation, rate controlled. 10. Obesity. PLAN: The overall plan of care is based on the preadmission screen, post-admission physician evaluation and information garnered from therapy assessments. 1. Estimated length of stay is probably at least 2 weeks pending progress. 2. Medical prognosis is reasonably good. 3. Anticipated interventions includes the interdisciplinary acute inpatient rehabilitation program. 4. Anticipated functional outcomes would be for the patient to become modified independent with transfers, mobility and ADLs as well as improved cognition, so that he can return back to the home setting. 5. Discharge destination would be back [place] [address] REHAB UNIT PLAN OF CARE Name: KAI POWELL Room #: 516-1 [facility] IN [facility]#: [id number] Admission: 03/10/19 Attend Phys: Kai Collins MD Discharge: 03/12/19 Date of : 48 Report #: [id number] 6. Expected therapy by discipline includes PT, OT and speech 1 hour per day each five days a week throughout the duration of the acute inpatient rehabilitation stay. By: [id number] Kai Collins MD /nt
--- NOTE | ~2019-03-09 | H ---
[facility] [address] [place] [address] HISTORY AND PHYSICAL Name: KAI POWELL Room #: 516-1 ADM IN .R.#: [id number] Admission: 03/10/19 Attend Phys: Kai Collins MD Discharge: Date of : 48 Report #: [id number] THIS REPORT FOR: //name// CC: Kai Collins [facility] unknown DATE OF SERVICE: 03/10/2019 HISTORY AND PHYSICAL AND POST ADMISSION PHYSICIAN EVALUATION HISTORY OF PRESENT ILLNESS: The patient is a 68-year-old male who was previously on the acute inpatient rehabilitation paulino with medical complexity and multiple medical comorbidities for acute hypoxemic hypercapnic respiratory failure. He underwent prior coronary artery bypass grafting. While on the rehab paulino, he unfortunately had worsening of his pulmonary condition. He was noted to have a significant left pleural effusion. He has been treated on the acute Medical/Surgical paulino and underwent a left thoracentesis of over a 1000 mL of fluid. He had suspected bronchitis, treated with oral Ceftin and was diagnosed with the left lower extremity cellulitis in the same leg that the vein harvesting occurred for his recent CABG. He was on IV antibiotics and Infectious Disease has now been consulted. He has medical complexity with generalized debilitation and has now been readmitted for acute in-hospital inpatient rehabilitation. As far as his past medical history, social history, habits, please see the history and physical as well as our prior rehabilitation admission documentation. MEDICATIONS: Per APR. REVIEW OF SYSTEMS: He feels that his breathing is better and improving. Still feels significantly weak and debilitated. Left lower extremity pain and discomfort is improving. No complaints of chest pain, no abdominal discomfort. As far as his skin. He does have the wound care issues to the left lower extremity. HEENT appeared to be benign. PHYSICAL EXAMINATION: GENERAL: He is a pleasant, overweight 68-year-old white male in no obvious distress. VITAL SIGNS: Temperature 97.5, pulse 93, respirations 18, blood pressure 118/57. NEUROLOGIC: He is alert. He follows basic 1 step commands. HEENT: Facies are symmetric. CHEST: Some diffuse decreased breath sounds throughout. CARDIAC: Midline sternal incision, which is dressed. CARDIOVASCULAR: Regular rate and rhythm. [facility] [address] [place] [address] HISTORY AND PHYSICAL Name: KAI POWELL Room #: 516-1 ADM IN [facility].#: [id number] Admission: 03/10/19 Attend Phys: Kai Collins MD Discharge: Date of : 48 Report #: [id number] ABDOMEN: Obese, bowel sounds positive, nontender. He is on nasal cannula O2, 4 liters. GENITOURINARY AND RECTAL: Deferred. EXTREMITIES: He has functional range of motion of both upper extremities. Strength is grade 3+ to 4-/5. DTRs are trace to 1. Lower extremities, left lower extremity is dressed. Thien wrap is in place. He can wiggle his toes. He can move the proximal lower extremity, probably a grade 3+/5, right lower extremity functional range of motion, strength is grade 3+ to possibly 4-/5. Functionally, he has been mod assist for basic sit to stand transfers. Again, please see the full history and physical. I agree with the documentation, examination. ASSESSMENT AND PLAN: 1. Medical complex with generalized debilitation. 2. Cardiopulmonary rehabilitation. 3. Recent acute diastolic heart failure. 4. Moderate left pleural effusion with prior thoracentesis. 5. Left lower extremity cellulitis. 6. Morbid obesity. 7. Status post coronary artery bypass grafting x 4. 8. Ischemic cardiomyopathy. 9. Atrial fibrillation. 10. Peripheral arterial disease. PLAN: The patient has been admitted for acute in-hospital inpatient rehabilitation. From a postadmission physician evaluation perspective, there are no relevant changes since the preadmission screening. Please see the above review of prior and current medical and functional conditions and comorbidities. Please see the patient's previous and current functional status. As far as risk of complications, the patient has multiple medical comorbidities as noted above. Initial plan of care includes the interdisciplinary acute inpatient rehabilitation program with goal of maximizing the patient's functional independence, so that he can hopefully return back to his prior living situation. Measurable functional goals would be for the patient to become modified independent with transfers, mobility and ADLs, so that he can hopefully return back to his prior living situation. We also have speech therapy involved regarding swallowing issues. Prognosis is reasonably good with estimated length of stay probably 10 days to 2 weeks pending progress. Potential barriers would include his multiple medical comorbidities and decreased functional status. The patient meets diagnostic criteria for an acute in-hospital inpatient rehabilitation stay. He meets the medical necessity criteria and we will have the multiple talent acquisition consultant physicians continue to follow. He does have the [address] [address] HISTORY AND PHYSICAL Name: KAI POWELL Room #: 516-1 ADM IN M.R.#: [id number] Admission: 03/10/19 Attend Phys: Kai Collins MD Discharge: Date of : 48 Report #: [id number] tolerance for therapies and has appropriate discharge goals back to the home setting. By: [id number] Kai Collins MD /nt
[2019-03-10] MEDS ORDERED: ZOSYN 3.3753.375 GM IV (12:04)
[2019-03-10] MEDS ORDERED: MUCINEX600 MG PO (12:04)
[2019-03-10] MEDS ORDERED: GENTAMICIN SULF15 GM TOP (12:04)
[2019-03-10] MEDS ORDERED: TORSEMIDE20 MG PO (12:04)
[2019-03-10] MEDS ORDERED: IPRAT-ALBUT 0.5-3 ML INH (12:04)
[2019-03-10] MEDS ORDERED: TRAZODONE HCL100 MG PO (12:04)
[2019-03-10] MEDS ORDERED: ACETAMINOPHEN325 M1 PO (12:04)
[2019-03-10] MEDS ORDERED: MELATONIN5 M1 PO (12:04)
[2019-03-10] MEDS ORDERED: COLACE 100 MG100 MG PO (12:04)
[2019-03-10 15:30] VITALS: BP 111/58
[2019-03-10 19:19] VITALS: BP 118/57
--- NOTE | 2019-03-10 19:42 | NUR ---
ASSUMED CARE OF PT AT 1530 WHEN PT ADMITTED TO UNIT. RECEIVED REPORT FROM YAMILKA CAMPBELL ON PREVIOUS UNIT PRIOR TO PT ARRIVING ON UNIT. PT ASSISTED INTO RECLINER BY NURSING STAFF AFTER ARRIVAL ON UNIT. ADMISSION ASSESSMENT, VITALS, WEIGHT, CONSENTS, AND EDUCATION COMPLETED. SIGNIFICANT OTHER IN ROOM WITH PATIENT AT THIS TIME. PT IS A&OX4 AND VITAL SIGNS ARE STABLE. PT ON 2L O2 VIA NC. LUNG SOUNDS CLEAR, WOUNDS TO LLE, DRESSING C/D/I, 3 LAP SITES TO ABDOMEN, DRESSINGS C/D/I, STERNAL INCISION PAPER MILL SUPERVISOR. FALL PRECAUTIONS IN PLACE, NURSING WILL CONTINUE TO MONITOR.
--- NOTE | 2019-03-11 04:46 | NUR ---
assumed care at approx 1900 evening 03/10. pt sitting up in recliner in room sleeping with friend sleeping on bed. pt awoke for hs meds tolerating well. physician came in to evaluate pt and removed left leg dressing. reapplied dressing to left leg with pt tolerating well. pts friend stayed the night sleeping in chair. 02 at 2l per n/c with pt wearing bipap at night. pt sleeping well. bed alarm on and call light in reach. will continue to monitor.
[2019-03-11 05:14] LABS: HEMATOCRIT 27.8 % (42.0-52.0); HEMOGLOBIN 8.6 gm/dL (14.0-18.0); MCH 29.5 pg (26.0-34.0); MCHC 31.1 g/dL (28.0-37.0); MCV 94.8 fL (80.0-100.0); RBC 2.93 mil/uL (4.50-6.00); RDW 17.3 % (10.5-14.5); WBC 7.9 thou/uL (4.0-11.0)
[2019-03-11 05:35] LABS: CALCIUM 8.7 mg/dL (8.5-10.1); CREATININE 1.2 mg/dL (0.7-1.3)
[2019-03-11 09:00] VITALS: BP 118/57
--- NOTE | 2019-03-11 12:39 | NUR ---
chart review, pt up in recliner chair, sig other here, she often stays with him over night. pt upset stated he ready to leave and go home and eat what he wants if he is 69 and going to suffer, just want to go home. cm and ENERGY SYSTEMS ENGINEER visited with pt. cm discussed with pt if leaves [facility], safe dc for physical and medical md not ready for dc yet. active listen and support during visit. reinforced no one here wants anyone to suffer. pt finally stated cant sleep medication is not helping and bipap not making me sleep, i need to rest. immigration associate provided education. cm education on dcp, home health, if needing cpap outpt sleep study. noted pt needing longer o2 tubing, cm passed on to bedside nurse to get more oxygen tubing. pt and sig other fe planning on going back to [facility]. few steps to enter home and then all can be on 1 level. pt stated he has home o2 and btx, walker if needed. end of visit pt resting in recliner chair, will cont following as needed for dc needs.
--- NOTE | 2019-03-11 13:34 | NUR ---
Nutrition: pt admit to rehab unit with acute hypoxemic respiratory distress. Seen due to consult for wound and modified diet need. Pt was on rehab then transferred back to acute for PE, bipap and thoracentesis. S/P CABG on 02/16 SOB w/ po. ST following, mechanical chopped diet. Intake is 75-100% of meals. Left calf abscess present. RD reviewed protein needs/sources. Pt will eat these first on trays. Low nutrition risk
--- NOTE | 2019-03-11 19:09 | NUR ---
PATIENT HAS RESTED IN ROOM MOST OF THE DAY. UP WITH THERPAY. INCISIONS TO ABDOMEN REMAIN CLEAN AND NEW DRESSING APPLIED. NEW DRESSING ALSO APPLIED TO RLE WOUND. HE IS ALERT ORIENTED X4 BUT FORGETFUL MOST OF THE TIME. NON COMPLIANT WITH HIS DIET HE HAS BEEN NOTED DRINKING POP AND EATING CHIPS WITH HIGH SODIUM CONC. EDUCATED. WILL CONT WITH PLAN OF CARE.
[2019-03-11 21:14] VITALS: BP 124/70
--- NOTE | 2019-03-12 03:51 | NUR ---
assumed care at approx 1900 evening 03/11. pt sitting up in bed at change of shift sleeping soundly. pt incontinent of urine requiring complete bed change. assisted pt into chair and slept most of night in recliner. pt took hs meds with water tolerating well. pt with increased congestion and was able to cough up large amt sputum. resp increased 02 to 5L per n/c and 02 sat monitor placed on earlobe as finger pulse would not register. pt forgetful and confused at times. now back to bed with girlfriend at bedside. pt encouraged to use IS and continue pulmonary toilet. pt wanting to eat and drink frequently at times in the night and encouraged to sleep and not eat as much. pt voiding per urinal. LIBRARY SUPERVISOR leonard Degroot paged for further orders, none at this time. c-xray results reviewed and no further orders at this time by LIBRARY SUPERVISOR. bed alarm on and call light in reach. will continue to monitor.
[2019-03-12 07:45] VITALS: BP 131/74
[2019-03-12 08:41] VITALS: BP 131/74
--- NOTE | 2019-03-12 10:39 | NUR ---
pt sig other fe came to office tearful wanting talk. cm sat with pt in ot gym, provided active listening and support during visit. dr hobbs came, education provided. she stated " from 10pm to 8am he is confused, combative and agitated. he not keeping o2 in his nose, not sleeping, needs different medication. he asking already to go home, dr kowalski say sleep study has to be outpt.i am drained, i cant go home because of this. he was talking about his , if cant be fixed wants to go home and . wants to be happy at home. he says he cant feel his hands or that he needs to urinate but he asked for urinal all the time. he wont keep that leg up 45 degree and he starts messing with bed, up and down. just do know."/fe. cm passed on information to household appliances service technician and player piano technician. spiritual care up on unite. end of visit she visiting with christina provied support. pt having resp tx, and encourage sig other fe to try to rest when goes home this afternoon. " thank you"/fe.
[2019-03-12 14:39] LABS: BE(vivo) 14.7 mmol/L (-2 to +3); HCO3 42.8 mmol/L (22.0-26.0); PO2 57.8 mmHg (80.0-100.0); pH 7.352 (7.360-7.450); sO2 87.2 % (92.0-98.0)
[2019-03-12] MEDS ORDERED: TRAZODONE HCL100 MG PO (15:29)
[2019-03-12] MEDS ORDERED: MELATONIN5 M1 PO (15:29)
[2019-03-12] MEDS ORDERED: PROTONIX40 M1 PO (15:29)
--- NOTE | 2019-03-12 16:55 | NUR ---
0820 Sitting at side of bed, PT attempting to transfer to when pt became very anxious, short of breath and sats decreased into mid 80s. Pt with RR 28-32 with sub and supracostal retractions. Breath sounds clear in upper lobes and diminished t/o, especially in lower lobes. RT at bedside completing treatment. FiO2 at 5 L per NC. Color pale pink with brisk capillary refill and palpable peripheral pulses. +2 edema in lower legs. Reg HR auscultated 95-110. Voiding per urinal. Active bowel sounds over soft, rounded abdomen. Dressing per LLL dry and intact. Periarea slightly reddened, cleaned and fungal/barrier cream applied. After approximately 5-10 min, sats slowly increased to low 90s and pt was calm with dyspea decreased. Did not want to get up to but wanted to stay in bed. Significant other Marta asleep in recliner at his side. Dr. Collins evaluating pt. 0920 Pt. sitting up in bed without s/o distress. O2 sats mid 90s with HR 95-100. Wants Doctor to call his son and explain why things keep happening to him. Asks that sons number be written on board so that MD can call son. Compliant with AM meds, eating breakfast. 1345 PT again attempting to get pt. up when O2 sats decreased to mid 80s. She increased FIO2 to 10L and had DUMPCART DRIVER assess pt. DUMPCART DRIVER ordered stat CXR, 40mg Lasix and ABG. Pt.anxious and slightly dusky with retractions. Lasix given IVP over 3 min and 22 g jelco saline locked. Site soft and flat without edema, flushes easily but does not have a blood return. Sats gradually increased to low 90s and pts anxiety, work of breathing decreased. HR per sat monitor remains 95-110 and regular. BP per L arm 114/71, RR 32. 1430 CXR done. FIO2 weaned to 6 l and ABG obtained on 3rd attempt by RT. O2 sats 94%. HR mid 90s. RR 28 and very shallow. Urinated a total of 800cc post lasix. BP 129/70. [address] to [address]ology for CT scan and then transferred to CCU per bed per order. Pt. in no visible s/o resp distress with arms behind his head. Report given.
== END 2019-03-12 17:04 | disposition short-term general hospital (02) | DRG 70 ==
PROVIDERS: Nurse Practitioner; ADMIT Physical Medicine & Rehabilitation
PROC: 5A09357 Assistance with Respiratory Ventilation, Less than 24 Consecutive Hours, Continuous Positive Airway Pressure (ICD-10-PCS; principal; 2019-03-12)
DX: G93.41 Metabolic encephalopathy (principal); J10.08 Influenza due to other identified influenza virus with other specified pneumonia; J12.2 Parainfluenza virus pneumonia; J96.21 Acute and chronic respiratory failure with hypoxia; J96.22 Acute and chronic respiratory failure with hypercapnia; L03.116 Cellulitis of left lower limb; N17.9 Acute kidney failure, unspecified; D62 Acute posthemorrhagic anemia; T85.79XA Infection and inflammatory reaction due to other internal prosthetic devices, implants and grafts, initial encounter; G93.1 Anoxic brain damage, not elsewhere classified; I13.0 Hypertensive heart and chronic kidney disease with heart failure and stage 1 through stage 4 chronic kidney disease, or unspecified chronic kidney disease; J91.8 Pleural effusion in other conditions classified elsewhere; R53.81 Other malaise; I25.10 Atherosclerotic heart disease of native coronary artery without angina pectoris; G47.33 Obstructive sleep apnea (adult) (pediatric); I48.91 Unspecified atrial fibrillation; I25.5 Ischemic cardiomyopathy; I73.9 Peripheral vascular disease, unspecified; E66.01 Morbid (severe) obesity due to excess calories; I50.9 Heart failure, unspecified; N18.9 Chronic kidney disease, unspecified; G31.84 Mild cognitive impairment of uncertain or unknown etiology; F41.1 Generalized anxiety disorder; I87.2 Venous insufficiency (chronic) (peripheral); Z95.1 Presence of aortocoronary bypass graft; Z88.8 Allergy status to other drugs, medicaments and biological substances; Z86.73 Personal history of transient ischemic attack (TIA), and cerebral infarction without residual deficits
CPT/HCPCS: 10112

== ENCOUNTER 2019-03-12 17:09 | Inpatient (IN) | payer OTHER ==
[~2019-03-12] VITALS: Ht 177.8 cm; Wt 132.1 kg
[~2019-03-12 17:09] MED LIST changes: +ACETAMINOPHEN325 M1 PO; +COLACE 100 MG100 MG PO; +GENTAMICIN SULF15 GM TOP; +IPRAT-ALBUT 0.5-3 ML INH; +MELATONIN5 M1 PO; +MUCINEX600 MG PO; +PROTONIX40 M1 PO; +TORSEMIDE20 MG PO; +TRAZODONE HCL100 MG PO; +ZOSYN 3.3753.375 GM IV
--- NOTE | 2019-03-12 18:24 | NUR ---
PT CARE ASSUMED APPROX 1645 BUT PT WAS NOT IN [facility] DONE BY ADMITTING UNTIL APPROX 1740 DESPITE MULTIPLE PHONE CALLS TO GET PT ADMITTED. DENIES PAIN AND SOA DESPITE O2 SAT BEING HIGH 80s. VS OTHERWISE STABLE. ORDERS RECEIVED FOR BIPAP AND PT SAT IMPROVED WITH IT. HE DOES NOT APPEAR TO NEED ANTIANXIETY MEDS AT THIS TIME. SON AT BEDSIDE WANTING CLINICAL UPDATE FROM DR. DR IRELAND AT THE BEDSIDE AT THIS TIME. AUDREY, PIPE ORGAN MECHANIC WAS AT BEDSIDE EARLIER. PT DENIES QUESITONS REGARDING POC. NO CLINICAL INSTABILITY NOTED AT THIS TIME.
--- NOTE | 2019-03-12 18:48 | NUR ---
NEW ORDERS TO TRANSFER PT TO ICU. DRYING SUPERVISOR IS AWARE AND WILL CALL UNIT BACK WHEN ICU BED OPENS UP.
--- NOTE | 2019-03-12 19:54 | NUR ---
1930-RECEIVED PT FROM CCU VIA BED.AWAKE,LETHARGIC BUT ANSWERS APPROP.TRANSF TO ICU BED W ASSIST X5-PT BECAME DUSKY VERY QUICKLY,VERY SOB.PT PLACED HIGH ONEILL'S,BIPAP APPLED & PT IMMED ASLEEP.--VW
[2019-03-12 20:00] VITALS: BP 96/46
[2019-03-12 20:04] LABS: BE(vivo) 14.5 mmol/L (-2 to +3); HCO3 42.1 mmol/L (22.0-26.0); PO2 68.4 mmHg (80.0-100.0); pH 7.373 (7.360-7.450); sO2 92.3 % (92.0-98.0)
[2019-03-12 20:05] LABS: PCO2 73.9 mmHg (35.0-45.0)
[2019-03-12 21:00] VITALS: BP 111/54
[2019-03-12 22:00] VITALS: BP 111/56
[2019-03-12 23:00] VITALS: BP 90/51
[2019-03-13] VITALS (71 sets, daily range): BP systolic 83–136; BP diastolic 37–86
[2019-03-13 05:55] LABS: HEMATOCRIT 28.1 % (42.0-52.0); HEMOGLOBIN 8.8 gm/dL (14.0-18.0); MCH 29.7 pg (26.0-34.0); MCHC 31.2 g/dL (28.0-37.0); MCV 95.3 fL (80.0-100.0); RBC 2.94 mil/uL (4.50-6.00); RDW 17.5 % (10.5-14.5); WBC 8.8 thou/uL (4.0-11.0)
[2019-03-13 06:14] LABS: CALCIUM 8.7 mg/dL (8.5-10.1); CREATININE 1.2 mg/dL (0.7-1.3); POTASSIUM 4.8 mmol/L (3.5-5.1)
--- NOTE | 2019-03-13 08:26 | NUR ---
0825 THORACENTESIS IN [facility], DR MOTA AT BEDSIDE, PATIENT TOLERATING WELL AT THIS TIME.
--- NOTE | 2019-03-13 08:39 | NUR ---
0823 DR MOTA IS RECOMENDING CHEST TUBE PLACEMENT SINCE THORACENTESIS WAS UNSUCCESSFUL. SHE RECOMENDS NPO AFTER MIDNIGHTON 03/14/19 FOR CHEST TUBE PLACEMENT ON FRIDAY.
--- NOTE | 2019-03-13 08:50 | NUR ---
PT ON BIPAP MOST OF NOC-RESP REGULAR WITH 02SAT 96-99%. SLEEPING OFF AND ON DURING NOC.DENIES PAIN. VOIDS PER URINAL. UO ADEQUATE. NPO AFTER MIDNIGHT FOR IR PROCEDURE.
[2019-03-13 09:48] LABS: BF NUCLEATED CELLS 129; BF RBC 79040
[2019-03-13 09:49] LABS: CLARITY CLOUDY; COLOR RED; TOTAL VOLUME 22 mL
--- NOTE | 2019-03-13 11:46 | NUR ---
DR KHAN HERE AND STATES THAT PATIENT NEEDS TO BE TRANSFERRED TO OR [facility] FOR CTS. PATIENT HAD A THORACENTESIS THIS AM THAT WAS UNSUCCESSFUL DO TO INOCULATION PER PHYSICIANS AND THEY FELT LIKE A CHEST TUBE WOULD ALSO BE INSUFFICIENT.
[2019-03-13 12:26] LABS: BF NEUTROPHILS 30; SOURCE THORACENTESIS
[2019-03-13 12:27] LABS: BF MACROPHAGE 8
--- NOTE | 2019-03-13 16:54 | NUR ---
[facility] WOULD NOT ACCEPT PATIENT. HOUSE SUPERVISIORIS NOW TRYING TO GET A HOLD OF [facility]. PATIENT REMAINS STABLE. SHORT OF AIR WITH MINIMAL EXCERTION NOTED. PATIENT CAN BE ANXIOUS AT TIMES AND ATIVAN DOES HELP. PATIENT FAMILY AT BEDSIDE FOR MOST OF THE DAY. NO FURTHER CONCERNS AT THIS TIME, WILL CONTINUE TO MONITOR AND CARE PLAN OF CARE.
[2019-03-13 19:07] LABS: BODY FLUID ALBUMIN 1.5 g/dL (Not Estab.); BODY FLUID AMYLASE 22 U/L (()); BODY FLUID GLUCOSE 77 mg/dL (()); BODY FLUID LDH 475 IU/L (()); BODY FLUID PROTEIN 3.1 g/dL (())
[2019-03-14] VITALS (8 sets, daily range): BP systolic 99–113; BP diastolic 44–65
--- NOTE | 2019-03-14 06:32 | NUR ---
Pt wore bipap most of the time from bedtime to 0500, No acute changes overnight. Woundcare done to ulcers on left leg and chest, new dressing applied. Pt is aware of the plan to transfer to another hospital and he prefers to go to [facility].
--- NOTE | 2019-03-14 10:36 | NUR ---
PT ACCEPTED BY [facility] THIS AM AND WILL TRANSFER THERE FOR CTS COVERAGE TODAY.
--- NOTE | 2019-03-14 10:51 | NUR ---
ASSUMED CARE @ 0700 03/14/19, PT ASSESSMENTS AND VSS PER ICU PROTOCOL. [facility] ACCEPTED THIS PT INTO THEIR FACILITY FOR CTS COVERAGE, PT IS AGREEABLE TO THIS, TRANSFER FORM SIGNED BY PT AND WITNESSED BY ME. AMBULANCE TRANPORT SET UP, PICK-UP TIME 1115.
[2019-03-15 09:15] LABS: SOURCE THORACENTESIS
--- NOTE | 2019-03-16 08:34 | HC ---
[facility] [address] [place] [address] CONSULTATION Name: POWELLCLARENCE Room #: 236-P [facility] IN ..#: [id number] Admission: 03/12/19 Attend Phys: Kirk Ventura MD Discharge: 03/14/19 Date of : 48 Report #: [id number] THIS REPORT FOR: //name// CC: Kirk Ventura [facility] unknown DATE OF SERVICE: 03/13/2019 REASON FOR CONSULTATION: Cellulitis of left leg, status post coronary artery bypass grafting and vein harvesting. HISTORY OF PRESENT ILLNESS: The patient is a 68-year-old gentleman known to the wound care service from previous care in the hospital. He previously underwent coronary artery bypass grafting earlier in February by Dr. Hodge with coronary artery bypass grafting x 4 with saphenous vein harvesting from the left leg. At that time, the patient was seen by wound care and was noted to have cellulitis of the left leg, treated with antibiotics. He feels that the leg is better now; however, he has been re-admitted with respiratory failure and a loculated pleural effusion. Attempt was made this morning to percutaneously drain the effusion by paracentesis. This was not successful and the patient was planned to have a chest tube for drainage on Friday. Wound care is consulted due to history of cellulitis of his leg. PAST MEDICAL HISTORY: Coronary artery disease, status post coronary artery bypass grafting, obesity, and sleep apnea. The patient is nondiabetic. MEDICATIONS: See chart. The patient is currently on topical gentamicin for the leg and IV meropenem. REVIEW OF SYSTEMS: The patient has had some shortness of breath and respiratory distress. PHYSICAL EXAMINATION: GENERAL: Shows an obese, alert, and elderly gentleman, energetic and a good historian. HEENT: Mucous membranes are moist. CHEST: The patient is in no respiratory distress. Midline sternotomy is well healing. ABDOMEN: Obese and soft. EXTREMITIES: Exam shows surgical incisions of the left leg, which are well healing with staple closure. Dressing is removed consisting of Xeroform gauze and ABD. There is moderate dried drainage on the ABD pad. The leg itself looks less swollen than on previous exam. There is no redness. There is no tenderness. Cellulitis clinically is resolved. Drainage is presumably coming from the small incision site of the upper and lower leg. [address] [address] CONSULTATION Name: ANDRECLARENCE Room #: 236-P [facility] IN ..#: [id number] Admission: 03/12/19 Attend Phys: Kirk Ventura MD Discharge: 03/14/19 Date of : 48 Report #: [id number] IMPRESSION AND PLAN: 1. Respiratory distress with pleural effusion, status post coronary artery bypass grafting. Plan for chest tube on Friday. 2. History of cellulitis of the left leg, improved. Continue IV antibiotics, topical gentamicin, Xeroform, and ABD pad, change daily. Wound care team will follow, but his left leg looks markedly improved. He is much less symptomatic and the redness has resolved. <ELECTRONICALLY SIGNED> By: Junaid Banda MD 03/16/19 0834 0933 [id number] Junaid Banda MD /nt
--- NOTE | 2019-03-16 17:07 | PATH ---
[facility] [address] [place] [address] PATHOLOGY RPT PROCEDURE Name: CLARENCE POWELL Room #: 236-P [facility] IN [facility].#: [id number] Admission: 03/12/19 Date of : 48 Discharge: 03/14/19 Report #: [id number] Path Case #: [id number] Note [facility] Accession Number: [id number] TESTS RESULT FLAG UNITS REF RANGE LAB Clinician Provided Cytology Information No. of containers..01 Other (Miscellaneous) Source: PLEURAL FLUID DIAGNOSIS: 02 PLEURAL FLUID INADEQUATE, INSUFFICIENT CELLS FOR STUDY. SCANT CELLULARITY. THIS INTERPRETATION INCLUDES EVALUATION OF A CELL BLOCK. RARE MACROPHAGES AND LYMPHOCYTES PRESENT. NO MESOTHELIAL CELLS PRESENT. Pathologist ICD10: 02 J90 Signed out by: Annie Rea MD, Pathologist NPI- [id number] Performed by: Maryann Smith, Pumper Gauger Apprentice ([facility]) Gross description: 01 6 ML, RED, CLOUDY /LCS 03/15/2019 1620 Local FLAG LEGEND: L-Low Normal,H-High Normal,LL-Alert Low,HH-Alert High <-Panic Low,>-Panic High,A-Abnormal,AA-Critical Abnormal Performed at: [address] [place] [address] Nilesh Godinez MD, [address] [address] Annie Rea MD, Specimen Comment: A courtesy copy of this report has been sent to [phone], [phone] Specimen Comment: [id number] Specimen Comment: [id number] Specimen Comment: Report sent to DR IRELAND / DR KHAN Performed at: [address], [place], [place] [id number] [address] [address] PATHOLOGY RPT PROCEDURE Name: CLARENCE POWELL Room #: 236-P [facility] M.R.#: [id number] Admission: 03/12/19 Date of : 48 Discharge: 03/14/19 Report #: [id number] Path Case #: [id number] MD Nilesh Godinez MD Phone: [phone]
== END 2019-03-14 12:26 | disposition short-term general hospital (02) | DRG 193 ==
LOC: 2N 17:09 → ICU 19:52
PROVIDERS: Internal Medicine Pulmonary Disease; ADMIT Hospitalist
PROC: 5A09357 Assistance with Respiratory Ventilation, Less than 24 Consecutive Hours, Continuous Positive Airway Pressure (ICD-10-PCS; principal; 2019-03-12)
PROC: 5A09357 Assistance with Respiratory Ventilation, Less than 24 Consecutive Hours, Continuous Positive Airway Pressure (ICD-10-PCS; 2019-03-13)
PROC: 0W9B3ZZ Drainage of Left Pleural Cavity, Percutaneous Approach (ICD-10-PCS; 2019-03-13)
PROC: 5A09357 Assistance with Respiratory Ventilation, Less than 24 Consecutive Hours, Continuous Positive Airway Pressure (ICD-10-PCS; 2019-03-14)
DX: J18.9 Pneumonia, unspecified organism (principal); J96.22 Acute and chronic respiratory failure with hypercapnia; J96.21 Acute and chronic respiratory failure with hypoxia; J90 Pleural effusion, not elsewhere classified; L03.116 Cellulitis of left lower limb; Z68.41 Body mass index [BMI] 40.0-44.9, adult; N17.9 Acute kidney failure, unspecified; D62 Acute posthemorrhagic anemia; I13.0 Hypertensive heart and chronic kidney disease with heart failure and stage 1 through stage 4 chronic kidney disease, or unspecified chronic kidney disease; J91.8 Pleural effusion in other conditions classified elsewhere; I25.10 Atherosclerotic heart disease of native coronary artery without angina pectoris; G47.33 Obstructive sleep apnea (adult) (pediatric); I50.9 Heart failure, unspecified; I73.9 Peripheral vascular disease, unspecified; I48.91 Unspecified atrial fibrillation; N18.9 Chronic kidney disease, unspecified; E66.01 Morbid (severe) obesity due to excess calories; D64.9 Anemia, unspecified; Z88.8 Allergy status to other drugs, medicaments and biological substances; Z95.1 Presence of aortocoronary bypass graft; Z79.82 Long term (current) use of aspirin; Z79.891 Long term (current) use of opiate analgesic; Z79.899 Other long term (current) drug therapy; Z79.01 Long term (current) use of anticoagulants; Z86.73 Personal history of transient ischemic attack (TIA), and cerebral infarction without residual deficits
CPT/HCPCS: 10078